=== PATIENT | female | born 1935 | race African-American/Black ===

== ENCOUNTER 2019-12-23 20:58 | Inpatient (IN) | payer MEDICARE, OTHER ==
[~2019-12-23] VITALS: Ht 167.6 cm; Wt 50.3 kg
[~2019-12-23 20:58] MED LIST: ACETAMINOPHEN-1 EAC1 ORAL; ACETAMINOPHEN80 MG ORAL; ASPIRIN-LOW81 MG ORAL; IBUPROFEN600 MG ORAL; ISOSORBIDE DINI20 M2 PO; NITROGLYCERIN2.5 MG PO; OMEPRAZOLE10 M1 ORAL; SIMVASTATIN5 MG ORAL
--- NOTE | 2019-12-23 21:07 | Emergency Room Report ---
History of Present Illness General Chief Complaint: Dyspnea/Respdistress Source: Patient, Medical Record, EMS Present Illness HPI Is an 84-year-old female with history of high blood pressure, diabetes, CAD with previous bypass surgery. She also has a history of COPD. She presents with chief plane of shortness of breath. She did complain of shortness of breath all day. No nausea no vomiting. Worsening tonight when she had to call 911. Worse with exertion. Worse with lying flat. No relief with her nebulizer machine. EMS that she was hypoxic and placed her on nonrebreather and brought her here. No treatment was given. Patient denies any chest pain. Has tightness because of respiratory status. No nausea no vomiting. No fever chills. No diaphoresis. No fever. I was able to get a better history from her daughter. Patient has a history of stage IV lung cancer. It was on remission initially but came back. She is currently undergoing chemotherapy and immunomodulators therapy. She was at [place] 2 weeks ago [address] scan which showed a right lower lobe mass and effusion with loculation. She also had a left upper lobe spiculated mass. Patient was given antibiotics and she signed out AMA. Allergies: Coded Allergies: NO KNOWN ALLERGIES (Verified Allergy, Unknown, 10/10/16) Patient History Past Medical History: see triage record, old chart reviewed, DM, HTN, CAD, COPD Past Surgical History: CABG, other Pertinent Family History: none Social History: Denies: smoking Last Menstrual Period: n/a Now: No Immunizations: other Reviewed Nursing Documentation: PMH: Agreed; PSxH: Agreed Nursing Documentation-PM Past Medical History: No History, Except For Hx Cardiac Problems: Yes - quadruple bypass surgery 1990 Hx Hypertension: Yes Hx COPD: Yes Hx Diabetes: No Hx Cancer: No Hx Gastrointestinal Problems: No Hx Neurological Problems: No Review of Systems Eye: Denies: eye pain, blurred vision ENT: Denies: ear pain, nose congestion, throat swelling Respiratory: Reports: cough, shortness of breath, wheezing Cardiovascular: Denies: chest pain, palpitations Gastrointestinal: Denies: abdominal pain, diarrhea, nausea, vomiting Musculoskeletal: Denies: back pain, joint pain Skin: Denies: rash Neurological: Denies: headache, numbness Endocrine: Denies: increased thirst, increased urine Hematologic/Lymphatic: Denies: easy bruising All Other Systems: negative except mentioned in HPI Physical Exam Vital Signs Date Time Temp Pulse Resp B/P (MAP) Pulse Ox O2 Delivery O2 Flow Rate FiO2 12/23/19 20:55 98.2 128 18 139/74 (95) 92 Non-Rebreather 15.0 Vitals with hypoxia Sp02 EP Interpretation: reviewed, abnormal General Appearance: alert, moderate distress, cachetic Head: normocephalic, atraumatic Eyes: bilateral eye PERRL, bilateral eye EOMI ENT: hearing grossly normal, normal pharynx Neck: full range of motion, supple, no meningismus Respiratory: chest non-tender, respiratory distress, decreased breath sounds, accessory muscle use, rales, rhonchi Cardiovascular #1: regular rate, rhythm, no murmur, tachycardia Gastrointestinal: normal bowel sounds, non tender, no mass, no organomegaly, no bruit, non-distended Musculoskeletal: back normal, normal range of motion Psychiatric: mood/affect normal Procedures Critical Care Time Critical Care Time Critical care is mandated in this patient who presented with acute respiratory failure secondary to pneumonia and CHF. Patient require my urgent intervention to attenuate the risks of respiratory and metabolic collapse which may lead to cardiovascular collapse and . Critical care time is 35 minutes excluding any reportable procedure. Critical care time included evaluation, multiple reevaluation, looking at old charts, interpreting laboratory and diagnostic data , discussing case with patient and family and consultants, and charting. Medical Decision Making Diagnostic Impression: Primary Impression: HCAP (healthcare-associated pneumonia) Additional Impressions: Respiratory failure with hypoxia Qualified Codes: J96.21 - Acute and chronic respiratory failure with hypoxia CHF exacerbation Qualified Codes: I50.9 - Heart failure, unspecified COPD with exacerbation RADHA (acute kidney injury) ER Course Patient with acute on chronic respiratory failure. She probably has obstructive pneumonia with a high white count. Antibiotics given. She also had fluid overload with vascular congestion on the chest x-ray. Also gave her Lasix. I held off on 30 cc/kg fluid bolus because of her CHF status. No evidence of ACS, PE, dissection to name a few. I discussed the case with Dr. Amos who will admit. EKG Diagnostic Results Rate: tachycardiac Rhythm: NSR ST Segments: other - NSST changes. Poor baseline due to tremors ASA given to the pt in ED: Yes Rhythm Strip Diag. Results EP Interpretation: yes Rate: 114 Rhythm: NSR, no PVC's, no ectopy Chest X-Ray Diagnostic Results Chest X-Ray Diagnostic Results : Chest X-Ray Ordered: Yes # of Views/Limited/Complete: 1 View Indication: Shortness of Breath EP Interpretation: Yes Interpretation: no pneumothorax, other - Large right lower lobe mass. Cannot rule out underlying infiltrate or edema. Vascular congestion. Impression: Other - RLL mass vs infiltrate. vasc congestion Electronically Signed by: Ge Carcamo MD Last Vital Signs Date Time Temp Pulse Resp B/P (MAP) Pulse Ox O2 Delivery O2 Flow Rate FiO2 12/23/19 20:55 98.2 128 18 139/74 (95) 92 Non-Rebreather 15.0 Status: improved Disposition: ADMITTED INPATIENT Condition: Serious Ge Carcamo MD Dec 23, 2019 21:07
[2019-12-23 21:10] VITALS: BP 114/68
[2019-12-23] MEDS ORDERED: Solu-MEDROL 125mg Inj IVP ONE (21:15)
[2019-12-23] MEDS ORDERED: Ipratropium 0.02% Inh Soln 2.5ml UD HHN ONE (21:15)
[2019-12-23] MEDS ORDERED: Aspirin Baby 81mg ORAL ONE (21:15)
[2019-12-23] MEDS ORDERED: Albuterol ud Inhalation HHN ONE (21:15)
[2019-12-23 21:21] LABS: HEMATOCRIT 44.4 % (37.0-47.0); HEMOGLOBIN 13.2 G/DL (12.0-16.0); MEAN CORPUSCULAR VOLUME 85 FL (80-99); PLATELET COUNT 307 K/UL (150-450); RED BLOOD COUNT 5.22 M/UL (4.20-5.40); RED CELL DISTRIBUTION WIDTH 17.8 % (11.6-14.8); WHITE BLOOD COUNT 19.8 K/UL (4.8-10.8)
[2019-12-23] MEDS ORDERED: IPRATROPIU0.2 MG/1 M HHN (21:28)
[2019-12-23] MEDS ORDERED: ARNUITY ELLIP100 MCG IH (21:28)
[2019-12-23] MEDS ORDERED: TESSALON PERLE100 M2 ORAL (21:28)
[2019-12-23] MEDS ORDERED: METOPROLOL SUCC50 MG ORAL (21:28)
[2019-12-23] MEDS ORDERED: METOPROLOL SUCC25 MG ORAL (21:28)
[2019-12-23 21:38] LABS: ANION GAP 12 mmol/L (5-15); BLOOD UREA NITROGEN 26 mg/dL (7-18); CALCIUM 9.9 MG/DL (8.5-10.1); CARBON DIOXIDE 22 MMOL/L (21-32); CHLORIDE 102 MMOL/L (98-107); CREATININE 1.6 MG/DL (0.55-1.30); POTASSIUM 4.7 MMOL/L (3.5-5.1); SODIUM 136 MMOL/L (136-145)
[2019-12-23 21:48] LABS: ALANINE AMINOTRANSFERASE 34 U/L (12-78); ALBUMIN 2.9 G/DL (3.4-5.0); ALBUMIN/GLOBULIN RATIO 0.5 (1.0-2.7); ALKALINE PHOSPHATASE 110 U/L (46-116); ASPARTATE AMINO TRANSFERASE 65 U/L (15-37); BILIRUBIN,TOTAL 0.4 MG/DL (0.2-1.0)
[2019-12-23] MEDS ORDERED: Piperacillin/Tazobactam 3.375 GM in NS 110 ML IVPB ONE (22:00)
[2019-12-23 22:20] LABS: APPEARANCE,URINE SLIGHTLY CLOUDY; BILIRUBIN, URINE NEGATIVE (NEGATIVE); GLUCOSE, URINE (UA) 1+ (NEGATIVE); KETONES,URINE 1+ (NEGATIVE); LEUKOCYTE ESTERASE ,URINE NEGATIVE (NEGATIVE); NITRITE,URINE NEGATIVE (NEGATIVE); PH,URINE 6 (4.5-8.0); PROTEIN,URINE 3+ (NEGATIVE); UROBILINOGEN,URINE NORMAL MG/DL (0.0-1.0)
[2019-12-23 22:21] LABS: COLOR,URINE YELLOW
[2019-12-23 22:50] VITALS: BP 93/56
[2019-12-24] VITALS (25 sets, daily range): BP systolic 74–136; BP diastolic 45–78
[2019-12-24] MEDS ORDERED: Milk of Magnesia 30ml Ud ORAL PRN (02:30)
[2019-12-24] MEDS ORDERED: HYDROcodone/Acetamin 10/325 tab ORAL PRN (02:30)
[2019-12-24] MEDS: Albuterol/Ipratropium 3ml neb HHN SCH ×6 (02:42→22:52)
[2019-12-24] MEDS ORDERED: Vancomycin 750mg/D5W 275ml IVPB SCH ×2 (03:00)
[2019-12-24] MEDS: Solu-MEDROL 125mg Inj IVP SCH ×3 (05:09→21:32)
[2019-12-24] MEDS: Aspirin EC 81mg tab ORAL SCH (09:00)
[2019-12-24] MEDS: Cefepime HCl 1 GM in D5W 55 ML IVPB SCH ×2 (09:06→21:33)
[2019-12-24] MEDS: Heparin 5000 units/ml inj SUBQ SCH ×3 (09:08→21:34)
--- NOTE | 2019-12-24 10:30 | Diagnostic Imaging Report ---
. Indication: Shortness of Technique: One view of the chest Comparison: 10/15/2016 Findings: Interim development of large right pleural effusion, smaller left pleural effusion. Interim development of dense consolidation of the right lower lobe. Hazy interstitial airspace and reticular interstitial disease is seen in the left mid and lower lung. The heart size is normal. Again demonstrated is evidence of prior median sternotomy and CABG Impression: Bilateral consolidation, likely pneumonia, pulmonary edema also possible Bilateral pleural effusions, right greater than left
[2019-12-25] VITALS (21 sets, daily range): BP systolic 107–154; BP diastolic 55–83
[2019-12-25] MEDS: Albuterol/Ipratropium 3ml neb HHN SCH ×4 (03:03→23:47)
[2019-12-25] MEDS: Solu-MEDROL 125mg Inj IVP SCH ×2 (05:09→21:31)
[2019-12-25] MEDS: Heparin 5000 units/ml inj SUBQ SCH ×3 (05:10→21:38)
[2019-12-25] MEDS: Cefepime HCl 1 GM in D5W 55 ML IVPB SCH ×2 (08:12→21:31)
[2019-12-25] MEDS: Aspirin EC 81mg tab ORAL SCH (08:13)
[2019-12-25 08:17] LABS: HEMOGLOBIN 11.7 G/DL (12.0-16.0); MEAN CORPUSCULAR VOLUME 80 FL (80-99); PLATELET COUNT 193 K/UL (150-450); RED BLOOD COUNT 4.48 M/UL (4.20-5.40); RED CELL DISTRIBUTION WIDTH 17.2 % (11.6-14.8); WHITE BLOOD COUNT 10.2 K/UL (4.8-10.8)
[2019-12-25 08:28] LABS: ALANINE AMINOTRANSFERASE 24 U/L (12-78); ALBUMIN 2.4 G/DL (3.4-5.0); ALBUMIN/GLOBULIN RATIO 0.5 (1.0-2.7); ALKALINE PHOSPHATASE 82 U/L (46-116); ANION GAP 10 mmol/L (5-15); ASPARTATE AMINO TRANSFERASE 44 U/L (15-37); BILIRUBIN,TOTAL 0.2 MG/DL (0.2-1.0); BLOOD UREA NITROGEN 42 mg/dL (7-18); CALCIUM 9.2 MG/DL (8.5-10.1); CARBON DIOXIDE 24 MMOL/L (21-32); CHLORIDE 111 MMOL/L (98-107); CREATININE 1.9 MG/DL (0.55-1.30); SODIUM 145 MMOL/L (136-145)
[2019-12-25] MEDS ORDERED: Vancomycin 1gm/D5W 275ml IVPB ONE ×2 (10:00)
[2019-12-25] MEDS ORDERED: Aspirin EC 81mg tab ORAL SCH (13:15)
--- NOTE | 2019-12-25 14:13 | Diagnostic Imaging Report ---
Indication: Dyspnea Comparison: 12/23/2019 A single view chest radiograph was obtained. Findings: Interstitial and alveolar opacities consistent with pulmonary edema demonstrated once again with slight interval worsening. Bilateral pleural effusions suspected. Heart is enlarged. Sternotomy again noted. IMPRESSION: Slightly worse CHF. Bilateral pleural effusions.
--- NOTE | 2019-12-25 15:00 | History and Physical Report ---
DATE OF ADMISSION: 12/23/2019 CHIEF COMPLAINT: Shortness of breath, respiratory failure. HISTORY OF PRESENT ILLNESS: The patient is an unfortunate 84-year-old female. She has a history of metastatic lung cancer, hypertension, ischemic cardiomyopathy, and diabetes. She has a history of COPD. She presented with complaints of worsening shortness of breath. The patient previously was seen at an outside hospital well over a week ago for similar symptoms. She was discharged from the ER after improving with breathing treatments. She is currently on BiPAP. She is somewhat somnolent and sleepy. According to the patient's daughter, she has been receiving her chemotherapy. She denies any fever or chills. She has had a mild nonproductive cough. She was previously given antibiotics and seen at the outside hospital. On evaluation in the emergency room, repeat chest x-ray showed a large right lower lobe mass and vascular congestion. She was given a dose of Lasix for possible CHF, placed on BiPAP, and is now admitted to the ICU. PAST MEDICAL HISTORY: As above. PAST SURGICAL HISTORY: None. CURRENT MEDICATIONS: Reconciled and reviewed. ALLERGIES: None. FAMILY HISTORY: None. SOCIAL HISTORY: Negative for tobacco, ethanol, or drugs. REVIEW OF SYSTEMS: Unobtainable as the patient is confused. PHYSICAL EXAMINATION: VITAL SIGNS: Temperature 98.5, pulse 115, respirations 24, blood pressure 127/69. GENERAL: The patient is a thin female. She appears chronically ill. HEENT: Her pupils are equal, round, and reactive to light. Oropharynx clear. NECK: Supple. HEART: Regular rate and rhythm. LUNGS: Clear. ABDOMEN: Soft, nontender, nondistended. EXTREMITIES: Without clubbing, cyanosis, or edema. LABORATORY DATA: White count of 20,000, hemoglobin 13, hematocrit 44, platelets of 307. Sodium 136, BUN 26, creatinine 1.6. Troponin was 0.048. Natriuretic peptide level 1600. ASSESSMENT: This is an unfortunate female with history of metastatic lung cancer, COPD, congestive heart failure, hypertension admitted with respiratory failure, likely multifactorial. PROBLEM LIST: 1. Respiratory failure. 2. CHF exacerbation. 3. Possible pneumonia. 4. Lung cancer. 5. Hypertension. 6. Ischemic cardiomyopathy. PLAN: 1. Continue BiPAP. We will wean as able. 2. IV antibiotics. 3. Respiratory treatments. 4. Cardiology and Pulmonary consultations will be obtained. 5. The patient's overall prognosis is poor. Elder Freeman M.D. DR: LORETTA JOB#: [id number] CC:
[2019-12-25] MEDS ORDERED: NovoLOG Insulin Flexpen SUBQ SCH ×2 (16:30→16:50)
[2019-12-25] MEDS ORDERED: Nitroglycerin 2% oint pkt TOPIC SCH (18:00)
--- NOTE | 2019-12-25 18:00 | Consultation ---
DATE OF CONSULTATION: 12/23/2019 CARDIOLOGY CONSULTATION CONSULTING PHYSICIAN: Samuel Amos M.D. REFERRING PHYSICIAN: Elder Freeman M.D. REASON: Respiratory failure. HISTORY: This is an 84-year-old female with lung cancer that was diagnosed over 3 years ago. She has had good response to adjuvant chemotherapy over the past 3 years with containment of her disease. More recently however she was started on immunotherapy about 2 months ago and has started faring worse with shortness of breath. Over the past 2 weeks, this has progressed. She was seen in the emergency room about a week ago and declined admission, but worsened prompting her return today. She has had cough, congestion, orthopnea, and PND with wheezing and poor appetite. She has not had any chest pain. PAST MEDICAL HISTORY: COPD, lung cancer, coronary artery disease status post CABG, hypertension, peripheral artery disease, hyperlipidemia, type 2 diabetes mellitus diet controlled, osteoarthritis, degenerative disk disease. ALLERGIES: None known. MEDICATIONS: Prior to admission, reviewed and reconciled. FAMILY HISTORY: Noncontributory. SOCIAL HISTORY: Greater than [id number] smoker, quit about 4 years ago. No alcohol or substance abuse. Lives at home with assistance of her daughter. REVIEW OF SYSTEMS: She is on anti-lipid therapy. Diabetes managed with diet. No history of thyroid impairment. No history of seizure or stroke. She does have peripheral artery disease and has had claudication in the past when she was more physically active. She has no history of melena, bright red blood per rectum, or change in bowel habits. She does have mild chronic kidney disease. There is no history of seizure. She has been on steroids in the past for COPD exacerbation. She has stage IV lung cancer as described above. Her most recent echocardiogram revealed ejection fraction in the range of 40 to 45% with mild valvular regurgitation. She has class 2 angina. She has been stable for at least 10 years on a medical regimen and has not had any heart failure exacerbation. There is no history of sustained cardiac arrhythmias. PHYSICAL EXAMINATION: VITAL SIGNS: Blood pressure 139/74, heart rate 128, respirations 18, afebrile. HEENT: Temporal wasting. Pale conjunctivae. Arcus senilis. Oropharynx clear. NECK: Supple. Jugular venous pressure is slightly elevated with some accessory muscle use. LUNGS: Diminished breath sounds. Rhonchi, rales, and occasional wheezing. Median sternotomy scar. BREASTS: Without masses. CARDIAC: Regular rhythm and rate. Normal S1, S2 with a fourth heart sound. ABDOMEN: Soft, nontender. EXTREMITIES: Palpable distal pulses. No edema. No ischemic changes. NEUROLOGIC: Nonfocal. DIAGNOSTIC AND LABORATORY DATA: EKG with sinus tachycardia, nonspecific ST-T wave changes. White count 19.8, hemoglobin 13.2. Sodium 136, potassium 4.7, bicarb 22, BUN 26, creatinine 1.6, glucose 290. Pro natriuretic peptide 15,500 and albumin 2.9. Urinalysis with 0 white cells. Chest x-ray is reviewed. Chest x-ray reveals bilateral consolidation and pulmonary edema. IMPRESSION: 1. Community-acquired pneumonia. 2. Stage IV lung cancer. 3. COPD with exacerbation. 4. Acute diastolic congestive heart failure. 5. Ischemic cardiomyopathy. 6. Moderate protein-calorie malnutrition. 7. Hyperglycemia. 8. Type 2 diabetes mellitus. 9. Acute hypoxic respiratory failure. PLAN: 1. ICU monitoring. 2. BiPAP support. 3. Diuresis as tolerated. 4. Broad-spectrum antimicrobials. 5. Intravenous steroids. 6. DVT and stress ulcer prophylaxis. 7. Protein supplement. 8. Insulin coverage by sliding scale. Samuel Amos M.D. DR: KAM JOB#: [id number] CC:
[2019-12-25] MEDS ORDERED: HYDROcodone/Acetamin 10/325 tab ORAL PRN (19:05)
[2019-12-25] MEDS ORDERED: Milk of Magnesia 30ml Ud ORAL PRN (19:05)
[2019-12-25] MEDS ORDERED: Solu-MEDROL 125mg Inj IVP SCH (21:00)
[2019-12-25] MEDS: NovoLOG Insulin Flexpen SUBQ SCH (21:36)
--- NOTE | 2019-12-25 22:00 | Progress Note ---
DATE: 12/24/2019 CARDIOLOGY PROGRESS NOTE SUBJECTIVE: The patient remains in the intensive care unit. She is very sleepy. She was up all night. She has episodes of respiratory distress. She remains on BiPAP support. Case was discussed with her daughter at bedside. Advanced directives Full Code at this time. OBJECTIVE: VITAL SIGNS: Blood pressure 93/56, pulse 102, respirations 31, and afebrile. LUNGS: Diminished breath sounds. Rhonchi. Expiratory wheezes. HEART: Regular rhythm and rate. Normal S1, S2 with a fourth heart sound. ABDOMEN: Soft. EXTREMITIES: Trace edema. LABORATORY DATA: No new laboratories from admission. IMPRESSION: 1. Acute respiratory failure. 2. Hypoxia. 3. Lung cancer. 4. Chronic obstructive pulmonary disease exacerbation. 5. Acute on diastolic congestive heart failure. 6. Ischemic cardiomyopathy. 7. Moderate protein-calorie malnutrition. 8. Acute on chronic kidney injury. 9. Type 2 diabetes mellitus. 10. Possible inflammatory response to immunotherapy. 11. Possible community-acquired pneumonia. PLAN: 1. Intravenous steroids. 2. Empiric antimicrobials. 3. Bronchodilators. 4. Respiratory hygiene. 5. Diuresis. 6. DVT and stress ulcer prophylaxis. 7. Hold antihypertensives. 8. Resume anti-platelet therapy. 9. Follow up chest radiograph. Samuel Amos M.D. DR: SANAM JOB#: [id number] CC:
[2019-12-26] VITALS: BP 120/73
[2019-12-26] MEDS: Albuterol/Ipratropium 3ml neb HHN SCH ×6 (03:26→22:15)
[2019-12-26 04:00] VITALS: BP 136/66
--- NOTE | 2019-12-26 06:11 | Progress Note ---
DATE: 12/25/2019 CARDIOLOGY PROGRESS NOTE SUBJECTIVE: The patient is seen again with daughter at bedside. The patient is much more alert and interactive, but she remains critial and guarded in the ICU. Her appetite is slightly better. She is tolerating diet. Monitored rhythm, sinus tachycardia with non-sustained atrial and ventricular ectopy. PHYSICAL EXAMINATION: NECK: Jugular venous pressure elevated. LUNGS: Bilateral rales. CARDIAC: Regular rhythm and rate. Normal S1 and S2. ABDOMEN: Soft. EXTREMITIES: No edema. LABORATORY AND DIAGNOSTIC DATA: White count 10 and hemoglobin 11.7. Potassium 4, sodium 145, bicarbonate 24, BUN 42, creatinine 1.9, and glucose 228. Albumin 2.4. Chest x-ray reveals pulmonary venous congestion. IMPRESSION: 1. COPD exacerbation. 2. Community-acquired pneumonia. 3. Stage IV lung cancer. 4. Acute on chronic diastolic congestive heart failure. 5. Ischemic cardiomyopathy. 6. Acute on chronic renal failure. 7. Severe protein-calorie malnutrition. 8. Secondary sinus tachycardia. 9. Atrial and ventricular ectopy. PLAN: 1. Diuresis. 2. Antimicrobials. 3. Steroids with taper. 4. Bronchodilators. 5. Antianginal therapy including topical nitrates. 6. DVT prophylaxis. Samuel Amos M.D. DR: CLEMENTINA JOB#: [id number] CC: SARKIS
[2019-12-26] MEDS: Nitroglycerin 2% oint pkt TOPIC SCH ×3 (06:17→16:08)
[2019-12-26] MEDS: Heparin 5000 units/ml inj SUBQ SCH ×3 (06:18→22:23)
[2019-12-26] MEDS: NovoLOG Insulin Flexpen SUBQ SCH ×4 (06:19→21:03)
[2019-12-26 06:37] LABS: HEMATOCRIT 35.4 % (37.0-47.0); HEMOGLOBIN 11.6 G/DL (12.0-16.0); MEAN CORPUSCULAR VOLUME 80 FL (80-99); PLATELET COUNT 192 K/UL (150-450); RED BLOOD COUNT 4.42 M/UL (4.20-5.40); RED CELL DISTRIBUTION WIDTH 17.3 % (11.6-14.8)
[2019-12-26 07:12] LABS: ALANINE AMINOTRANSFERASE 20 U/L (12-78); ALBUMIN 2.4 G/DL (3.4-5.0); ALBUMIN/GLOBULIN RATIO 0.5 (1.0-2.7); ALKALINE PHOSPHATASE 75 U/L (46-116); ANION GAP 9 mmol/L (5-15); ASPARTATE AMINO TRANSFERASE 36 U/L (15-37); BILIRUBIN,TOTAL 0.2 MG/DL (0.2-1.0); BLOOD UREA NITROGEN 47 mg/dL (7-18); CALCIUM 9.3 MG/DL (8.5-10.1); CARBON DIOXIDE 28 MMOL/L (21-32); CHLORIDE 104 MMOL/L (98-107); CREATININE 1.9 MG/DL (0.55-1.30); POTASSIUM 4.3 MMOL/L (3.5-5.1); SODIUM 141 MMOL/L (136-145)
[2019-12-26 08:00] VITALS: BP 135/74
[2019-12-26] MEDS: Cefepime HCl 1 GM in D5W 55 ML IVPB SCH ×2 (09:00→21:01)
[2019-12-26] MEDS: Aspirin EC 81mg tab ORAL SCH (09:09)
[2019-12-26] MEDS: Solu-MEDROL 125mg Inj IVP SCH (09:12)
[2019-12-26 12:00] VITALS: BP 112/72
--- NOTE | 2019-12-26 13:42 | General Progress Note ---
Assessment/Plan Problem List: (1) Pneumonia ICD Codes: J18.9 - Pneumonia, unspecified organism SNOMED: 093070116 (2) CHF exacerbation ICD Codes: I50.9 - Heart failure, unspecified SNOMED: 804099868, 35230250008694 Qualifiers: Qualified Codes: I50.9 - Heart failure, unspecified (3) COPD with exacerbation ICD Codes: J44.1 - Chronic obstructive pulmonary disease with (acute) exacerbation SNOMED: 352175197, 9437009 (4) Respiratory failure with hypoxia ICD Codes: J96.91 - Respiratory failure, unspecified with hypoxia SNOMED: 05453659461515241 Qualifiers: Qualified Codes: J96.21 - Acute and chronic respiratory failure with hypoxia (5) RADHA (acute kidney injury) ICD Codes: N17.9 - Acute kidney failure, unspecified SNOMED: 25265806, 9907290 Status: stable, progressing Assessment/Plan: iv lasix bipap resp rx abx consider tap Subjective ROS Limited/Unobtainable: No Constitutional: Reports: malaise, weakness HEENT: Reports: no symptoms Cardiovascular: Reports: no symptoms Respiratory: Reports: cough, shortness of breath Gastrointestinal/Abdominal: Reports: no symptoms Genitourinary: Reports: no symptoms Neurologic/Psychiatric: Reports: no symptoms Endocrine: Reports: no symptoms Hematologic/Lymphatic: Reports: no symptoms Allergies: Coded Allergies: NO KNOWN ALLERGIES (Verified Allergy, Unknown, 10/10/16) All Systems: reviewed and negative except above Subjective no complaints. currently off bipap. decreased sob. weak but alert. follow commands. Objective Last 24 Hour Vital Signs Date Time Temp Pulse Resp B/P (MAP) Pulse Ox O2 Delivery O2 Flow Rate FiO2 12/26/19 12:11 Bi-pap 12/26/19 12:00 108/63 12/26/19 11:56 89 12/26/19 09:00 77 108/63 12/26/19 08:00 86 12/26/19 08:00 Bi-pap 12/26/19 07:27 84 20 100 Nasal Cannula 2.0 28 81 20 99 12/26/19 07:07 98 Nasal Cannula 2.0 28 12/26/19 06:17 136/66 12/26/19 04:00 35 12/26/19 04:00 86 12/26/19 04:00 Bi-pap 12/26/19 04:00 97.7 95 23 136/66 (89) 95 12/26/19 02:35 92 19 96 35 12/26/19 00:56 94 21 95 Bi-Pap 35 35 12/26/19 00:00 90 12/26/19 00:00 97.7 92 20 120/73 (89) 98 12/26/19 00:00 Nasal Cannula 2.0 12/26/19 00:00 2.0 12/25/19 23:47 81 18 91 Nasal Cannula 2.0 28 78 18 89 12/25/19 21:30 95 119/70 12/25/19 20:00 2.0 12/25/19 20:00 Nasal Cannula 2.0 12/25/19 20:00 95 12/25/19 20:00 98.7 97 20 119/70 (86) 100 12/25/19 19:31 89 Nasal Cannula 2.0 28 12/25/19 19:00 97 20 123/81 (95) 92 12/25/19 18:00 97 20 123/81 (95) 92 12/25/19 17:16 123/89 12/25/19 17:00 90 13 123/69 (87) 96 12/25/19 16:00 2.0 12/25/19 16:00 97 12/25/19 16:00 Nasal Cannula 2.0 12/25/19 16:00 98.2 100 21 118/70 (86) 93 12/25/19 15:00 103 20 108/60 (76) 95 12/25/19 14:04 108 107/57 12/25/19 14:00 109 29 107/55 (72) 95 Intake and Output 12/25/19 12/26/19 19:00 07:00 Intake Total 510.000 ml 295 ml Output Total 970 ml 1500 ml Balance -460.000 ml -1205 ml Intake Oral 180 ml 240 ml IV Total 330.000 ml 55 ml Output Urine Total 970 ml 1500 ml Laboratory Tests 12/26/19 03:50: White Blood Count 7.0, Red Blood Count 4.42, Hemoglobin 11.6L, Hematocrit 35.4L , Mean Corpuscular Volume 80, Mean Corpuscular Hemoglobin 26.2L, Mean Corpuscular Hemoglobin Concent 32.6, Red Cell Distribution Width 17.3H, Platelet Count 192, Mean Platelet Volume 7.3, Neutrophils (%) (Auto) , Lymphocytes (%) (Auto) , Monocytes (%) (Auto) , Eosinophils (%) (Auto) , Basophils (%) (Auto) , Differential Total Cells Counted 100, Neutrophils % ( Manual) 96H, Lymphocytes % (Manual) 2L, Monocytes % (Manual) 1, Eosinophils % ( Manual) 0, Basophils % (Manual) 1, Band Neutrophils 0, Platelet Estimate Adequate, Platelet Morphology Normal, Hypochromasia 1+, Anisocytosis 1+, Sodium Level 141, Potassium Level 4.3, Chloride Level 104, Carbon Dioxide Level 28, Anion Gap 9, Blood Urea Nitrogen 47H, Creatinine 1.9H, Estimat Glomerular Filtration Rate 30.5, Glucose Level 205H, Calcium Level 9.3, Magnesium Level 2.5H, Total Bilirubin 0.2, Aspartate Amino Transf (AST/SGOT) 36, Alanine Aminotransferase (ALT/SGPT) 20, Alkaline Phosphatase 75, Pro-B-Type Natriuretic Peptide 77436G, Total Protein 7.0, Albumin 2.4L, Globulin 4.6, Albumin/Globulin Ratio 0.5L Height (Feet): 5 Height (Inches): 6.00 Weight (Pounds): 104 General Appearance: WD/WN, alert Cardiovascular: regular rhythm Respiratory/Chest: decreased breath sounds Abdomen: normal bowel sounds, non tender, soft, no organomegaly Edema: no edema noted Arm (L), no edema noted Arm (R), no edema noted Leg (L), no edema noted Leg (R), no edema noted Pedal (L), no edema noted Pedal (R), no edema noted Generalized Neurologic: alert Elder Freeman MD Dec 26, 2019 13:42
[2019-12-26] MEDS ORDERED: NS 275ml ONE (15:27)
[2019-12-26 16:00] VITALS: BP 106/63
[2019-12-26 20:00] VITALS: BP 112/64
[2019-12-26] MEDS: Solu-MEDROL 40mg Inj IVP SCH (21:01)
--- NOTE | 2019-12-26 22:30 | Progress Note ---
DATE: 12/26/2019 CARDIOLOGY PROGRESS NOTE SUBJECTIVE: The patient responded fairly well to diuresis yesterday. She is somewhat less short of breath. Still with congestion. Appetite is poor. She notes that she may be better with pureed diet that she does not have to chew. OBJECTIVE: VITAL SIGNS: Blood pressure 108/63, pulse 77, and respiratory rate 18. She is intermittently on BiPAP support. LUNGS: Bilateral breath sounds. CARDIAC: Regular rhythm and rate. Normal S1 and S2. Scattered rhonchi. No wheezing. ABDOMEN: Soft. EXTREMITIES: No edema. LABORATORY AND DIAGNOSTIC DATA: Sodium 141, potassium 4.3, bicarbonate 28, BUN 47, creatinine 1.9, and glucose 205. Pro-natriuretic peptide 18,000. Albumin 2.4. White count 7 and hemoglobin 11.6. Chest x-ray yesterday revealed pulmonary edema. IMPRESSION: 1. Acute on chronic systolic and diastolic congestive heart failure. 2. Ischemic cardiomyopathy. 3. Paroxysmal bronchospasm. 4. COPD with exacerbation. 5. Community-acquired pneumonia. 6. Stage IV lung cancer. 7. Possible immunotherapy reaction. 8. Acute on chronic kidney injury. 9. Type 2 diabetes mellitus. 10. Dysphagia due to dentures. PLAN: 1. Downgrade diet. 2. Continue diuresis. 3. Respiratory hygiene. 4. Bronchodilators. 5. Antimicrobials. 6. Taper steroids. Samuel Amos M.D. DR: CLEMENTINA JOB#: [id number] CC:
[2019-12-27] VITALS: BP 123/72
[2019-12-27] MEDS: Albuterol/Ipratropium 3ml neb HHN SCH ×6 (02:11→22:08)
[2019-12-27 04:00] VITALS: BP 118/69
[2019-12-27 05:18] LABS: ALANINE AMINOTRANSFERASE 20 U/L (12-78); ALBUMIN 2.3 G/DL (3.4-5.0); ALBUMIN/GLOBULIN RATIO 0.5 (1.0-2.7); ALKALINE PHOSPHATASE 65 U/L (46-116); ANION GAP 8 mmol/L (5-15); ASPARTATE AMINO TRANSFERASE 24 U/L (15-37); BILIRUBIN,TOTAL 0.2 MG/DL (0.2-1.0); BLOOD UREA NITROGEN 49 mg/dL (7-18); CARBON DIOXIDE 27 MMOL/L (21-32); CHLORIDE 102 MMOL/L (98-107); CREATININE 1.8 MG/DL (0.55-1.30); POTASSIUM 4.7 MMOL/L (3.5-5.1); SODIUM 137 MMOL/L (136-145)
[2019-12-27] MEDS: Nitroglycerin 2% oint pkt TOPIC SCH ×3 (06:04→17:49)
[2019-12-27] MEDS: NovoLOG Insulin Flexpen SUBQ SCH ×4 (06:06→20:48)
[2019-12-27] MEDS: Heparin 5000 units/ml inj SUBQ SCH ×3 (06:07→20:55)
--- NOTE | 2019-12-27 07:51 | General Progress Note ---
Assessment/Plan Problem List: (1) Pneumonia ICD Codes: J18.9 - Pneumonia, unspecified organism SNOMED: 121290361 (2) CHF exacerbation ICD Codes: I50.9 - Heart failure, unspecified SNOMED: 890466536, [id number] Qualifiers: Qualified Codes: I50.9 - Heart failure, unspecified (3) COPD with exacerbation ICD Codes: J44.1 - Chronic obstructive pulmonary disease with (acute) exacerbation SNOMED: 160035168, 0265839 (4) Respiratory failure with hypoxia ICD Codes: J96.91 - Respiratory failure, unspecified with hypoxia SNOMED: [id number] Qualifiers: Qualified Codes: J96.21 - Acute and chronic respiratory failure with hypoxia (5) RADHA (acute kidney injury) ICD Codes: N17.9 - Acute kidney failure, unspecified SNOMED: 87491014, 0526470 Status: stable, progressing Assessment/Plan: iv lasix bipap resp rx abx consider tap Subjective ROS Limited/Unobtainable: No Constitutional: Reports: malaise, weakness HEENT: Reports: no symptoms Cardiovascular: Reports: no symptoms Respiratory: Reports: cough, shortness of breath Gastrointestinal/Abdominal: Reports: no symptoms Genitourinary: Reports: no symptoms Neurologic/Psychiatric: Reports: no symptoms Endocrine: Reports: no symptoms Hematologic/Lymphatic: Reports: no symptoms Allergies: Coded Allergies: NO KNOWN ALLERGIES (Verified Allergy, Unknown, 10/10/16) All Systems: reviewed and negative except above Subjective off bipap. eating breakfast. less sob and congested. Objective Last 24 Hour Vital Signs Date Time Temp Pulse Resp B/P (MAP) Pulse Ox O2 Delivery O2 Flow Rate FiO2 12/27/19 07:22 85 20 99 83 20 99 12/27/19 07:21 99 Nasal Cannula 2.0 28 12/27/19 06:04 118/69 12/27/19 04:47 84 22 98 35 12/27/19 04:00 92 12/27/19 04:00 Bi-pap 12/27/19 04:00 97.8 90 28 118/69 (85) 97 12/27/19 04:00 35 12/27/19 02:12 91 23 97 35 12/27/19 02:12 93 22 99 Bi-Pap 35 91 23 97 12/27/19 00:48 95 21 97 35 12/27/19 00:00 35 12/27/19 00:00 Nasal Cannula 2.0 12/27/19 00:00 96 12/27/19 00:00 97.7 100 22 123/72 (89) 96 12/26/19 22:16 94 18 98 Nasal Cannula 2.0 28 92 18 95 12/26/19 21:02 96 112/64 12/26/19 21:00 Nasal Cannula 2.0 12/26/19 20:00 98.6 96 24 112/64 (80) 96 12/26/19 20:00 100 12/26/19 20:00 2.0 12/26/19 19:53 92 20 99 Nasal Cannula 2.0 28 95 20 96 12/26/19 19:53 96 Nasal Cannula 2.0 28 12/26/19 16:08 103/63 12/26/19 16:00 98.2 96 20 106/63 (77) 96 12/26/19 16:00 97 12/26/19 15:40 Bi-pap 12/26/19 14:21 86 18 100 Nasal Cannula 2.0 28 78 18 98 12/26/19 12:11 Bi-pap 12/26/19 12:00 97.3 64 20 112/72 (85) 98 12/26/19 12:00 108/63 12/26/19 11:56 89 12/26/19 09:00 77 108/63 12/26/19 08:00 86 12/26/19 08:00 97.0 86 19 135/74 (94) 97 12/26/19 08:00 Bi-pap Intake and Output 12/26/19 12/27/19 19:00 07:00 Intake Total 295 ml Output Total 900 ml Balance -605 ml Intake Oral 240 ml IV Total 55 ml Output Urine Total 900 ml Laboratory Tests 12/27/19 04:05: Sodium Level 137, Potassium Level 4.7, Chloride Level 102, Carbon Dioxide Level 27, Anion Gap 8, Blood Urea Nitrogen 49H, Creatinine 1.8H, Estimat Glomerular Filtration Rate 32.6, Glucose Level 232H, Calcium Level 9.0, Total Bilirubin 0.2 , Aspartate Amino Transf (AST/SGOT) 24, Alanine Aminotransferase (ALT/SGPT) 20, Alkaline Phosphatase 65, Total Protein 6.5, Albumin 2.3L, Globulin 4.2, Albumin/ Globulin Ratio 0.5L, Random Vancomycin Level 10.7 Height (Feet): 5 Height (Inches): 6.00 Weight (Pounds): 105 Objective General Appearance: WD/WN, alert Cardiovascular: regular rhythm Respiratory/Chest: decreased breath sounds Abdomen: normal bowel sounds, non tender, soft, no organomegaly Edema: no edema noted Arm (L), no edema noted Arm (R), no edema noted Leg (L), no edema noted Leg (R), no edema noted Pedal (L), no edema noted Pedal (R), no edema noted Generalized Neurologic: alert Elder Freeman MD Dec 27, 2019 07:51
[2019-12-27 08:00] VITALS: BP 110/67
[2019-12-27] MEDS ORDERED: Vancomycin 1 GM in NS 275 ML IVPB ONE (08:00)
[2019-12-27] MEDS: Solu-MEDROL 40mg Inj IVP SCH ×2 (08:20→20:27)
[2019-12-27] MEDS: Aspirin EC 81mg tab ORAL SCH (08:20)
[2019-12-27] MEDS: Cefepime HCl 1 GM in D5W 55 ML IVPB SCH ×2 (09:10→20:28)
[2019-12-27] MEDS ORDERED: NS 275ml ONE (10:29)
[2019-12-27] MEDS ORDERED: Tubing IV Secondary IV ONE (10:29)
--- NOTE | 2019-12-27 10:38 | Pulmonology Progress Note ---
Assessment/Plan Assessment/Plan 1. Acute on chronic systolic and diastolic congestive heart failure. 2. Ischemic cardiomyopathy. 3. Pulmonary edema 4. COPD with exacerbation. 5. Possible pneumonia. 6. Stage IV lung cancer. 7. Type 2 diabetes mellitus. 8. aspiration risk PLAN diurese on steroids monitor imaging; not yet improved ?? lymphangitic spread oxygen as needed BIPAP PRN monitor acid base impression, plan, and exam edited and reviewed in detail care discussed with RN Subjective Allergies: Coded Allergies: NO KNOWN ALLERGIES (Verified Allergy, Unknown, 10/10/16) Subjective care noted off BIPAP no distress Objective Last 24 Hour Vital Signs Date Time Temp Pulse Resp B/P (MAP) Pulse Ox O2 Delivery O2 Flow Rate FiO2 12/27/19 08:20 97 110/67 12/27/19 08:00 98.1 97 19 110/67 (81) 100 12/27/19 08:00 Nasal Cannula 2.0 12/27/19 08:00 2.0 12/27/19 07:44 96 12/27/19 07:22 85 20 99 83 20 99 12/27/19 07:21 99 Nasal Cannula 2.0 28 12/27/19 06:04 118/69 12/27/19 04:47 84 22 98 35 12/27/19 04:00 92 12/27/19 04:00 Bi-pap 12/27/19 04:00 97.8 90 28 118/69 (85) 97 12/27/19 04:00 35 12/27/19 02:12 91 23 97 35 12/27/19 02:12 93 22 99 Bi-Pap 35 91 23 97 12/27/19 00:48 95 21 97 35 12/27/19 00:00 35 12/27/19 00:00 Nasal Cannula 2.0 12/27/19 00:00 96 12/27/19 00:00 97.7 100 22 123/72 (89) 96 12/26/19 22:16 94 18 98 Nasal Cannula 2.0 28 92 18 95 12/26/19 21:02 96 112/64 12/26/19 21:00 Nasal Cannula 2.0 12/26/19 20:00 98.6 96 24 112/64 (80) 96 12/26/19 20:00 100 12/26/19 20:00 2.0 12/26/19 19:53 92 20 99 Nasal Cannula 2.0 28 95 20 96 12/26/19 19:53 96 Nasal Cannula 2.0 28 12/26/19 16:08 103/63 12/26/19 16:00 98.2 96 20 106/63 (77) 96 12/26/19 16:00 97 12/26/19 15:40 Bi-pap 12/26/19 14:21 86 18 100 Nasal Cannula 2.0 28 78 18 98 12/26/19 12:11 Bi-pap 12/26/19 12:00 97.3 64 20 112/72 (85) 98 12/26/19 12:00 108/63 12/26/19 11:56 89 Intake and Output 12/26/19 12/27/19 19:00 07:00 Intake Total 295 ml Output Total 900 ml Balance -605 ml Intake Oral 240 ml IV Total 55 ml Output Urine Total 900 ml Objective WDWN NAD reduced breath sounds bilaterally with some crackles [id number] without MRG NABS nontender no HSM no CC mild edema reduced LOC Laboratory Tests 12/27/19 04:05: Sodium Level 137, Potassium Level 4.7, Chloride Level 102, Carbon Dioxide Level 27, Anion Gap 8, Blood Urea Nitrogen 49H, Creatinine 1.8H, Estimat Glomerular Filtration Rate 32.6, Glucose Level 232H, Calcium Level 9.0, Total Bilirubin 0.2 , Aspartate Amino Transf (AST/SGOT) 24, Alanine Aminotransferase (ALT/SGPT) 20, Alkaline Phosphatase 65, Total Protein 6.5, Albumin 2.3L, Globulin 4.2, Albumin/ Globulin Ratio 0.5L, Random Vancomycin Level 10.7 Current Medications Medications (Trade) Dose Ordered Sig/Carlos Route PRN Reason Start Time Stop Time Status Last Admin Dose Admin Acetaminophen (Tylenol) 650 mg Q4H PRN ORAL Mild Pain/Temp > 100.5 12/25/19 19:04 01/24/20 19:03 Acetaminophen/ Hydrocodone Bitart ([place] 10/325) 1 tab Q4H PRN ORAL For Pain 12/25/19 19:05 01/01/20 19:04 Albuterol/ Ipratropium (Albuterol/ Ipratropium) 3 ml Q4HRT HHN 12/25/19 23:00 12/29/19 02:59 12/27/19 07:20 Aspirin (Ecotrin) 81 mg DAILY ORAL 12/26/19 09:00 01/24/20 13:14 12/27/19 08:20 Cefepime HCl 1 gm/ Dextrose 55 ml @ 110 mls/hr EVERY 12 HOURS IVPB 12/25/19 21:00 12/31/19 08:59 12/27/19 09:10 Dextrose (Dextrose 50%) 25 ml Q30M PRN IV Hypoglycemia 12/25/19 19:15 01/24/20 13:14 Dextrose (Dextrose 50%) 50 ml Q30M PRN IV Hypoglycemia 12/25/19 19:15 01/24/20 13:14 Heparin Sodium (Porcine) (Heparin 5000 units/ml) 5,000 units EVERY 8 HOURS SUBQ 12/25/19 22:00 01/23/20 07:59 12/27/19 06:07 Insulin Aspart (NovoLOG) BEFORE MEALS AND HS SUBQ 12/25/19 21:00 01/24/20 16:29 12/27/19 06:06 Magnesium Hydroxide (Mom) 30 ml DAILYPRN PRN ORAL Constipation 12/25/19 19:05 01/24/20 19:04 Methylprednisolone Sodium Succinate (Solu-MEDROL) 40 mg EVERY 12 HOURS IVP 12/26/19 21:00 01/25/20 20:59 12/27/19 08:20 Metoprolol Tartrate (Lopressor) 25 mg Q12HR ORAL 12/25/19 21:00 01/24/20 13:14 12/27/19 08:20 Nitroglycerin (Nitro-Bid) 1 inch TID@0600,1200,1800 TOPIC 12/26/19 06:00 01/24/20 17:59 12/27/19 06:04 Pantoprazole (Protonix) 40 mg DAILY ORAL 12/26/19 09:00 01/23/20 08:59 12/27/19 08:20 Pravastatin Sodium (Pravachol) 20 mg BEDTIME ORAL 12/25/19 21:00 01/24/20 20:59 12/26/19 21:01 Vancomycin HCl (Vanco rx to dose) 1 ea DAILY PRN MISC Per rx protocol 12/26/19 09:00 01/23/20 02:14 Rei Seymour MD Dec 27, 2019 10:38
[2019-12-27 12:00] VITALS: BP 103/64
[2019-12-27 16:00] VITALS: BP 105/65
[2019-12-27 20:00] VITALS: BP 103/64
[2019-12-28] VITALS: BP 101/64
--- NOTE | 2019-12-28 01:01 | Progress Note ---
DATE: 12/27/2019 CARDIOLOGY PROGRESS NOTE SUBJECTIVE: Weak and withdrawn, but less short of breath. OBJECTIVE: VITAL SIGNS: Blood pressure 103/64, pulse 103, respiratory rate 22, and afebrile. Cardiac monitoring reviewed by me sinus and sinus tachycardia noted. LUNGS: Coarse breath sounds and rhonchi with a few rales. HEART: Regular rhythm and rate. Normal S1 and S2. A 1/6 systolic murmur at apex. ABDOMEN: Soft and nontender. EXTREMITIES: Trace dependent edema. LABORATORY DATA: Sodium 137, potassium 4.7, bicarb 27, BUN 49, creatinine 1.8, and glucose 232. Albumin 2.3. IMPRESSION: 1. Community-acquired pneumonia and lung cancer. 2. COPD exacerbation. 3. Acute on chronic diastolic and systolic congestive heart failure 4. Ischemic cardiomyopathy. 5. Type 2 diabetes mellitus with hyperglycemia due to steroids. 6. Secondary sinus tachycardia. PLAN: 1. Continue diuresis. 2. Taper steroids. 3. Antimicrobials. 4. Respiratory hygiene. 5. Bronchodilators. 6. DVT prophylaxis. 7. Insulin coverage by sliding scale. 8. Nasal oxygen. 9. BiPAP p.r.n. 10. Replace electrolytes. Samuel Amos M.D. DR: [place] JOB#: [id number] CC:
[2019-12-28] MEDS: Albuterol/Ipratropium 3ml neb HHN SCH ×6 (02:08→23:28)
[2019-12-28 04:00] VITALS: BP 129/67
[2019-12-28 05:20] LABS: HEMATOCRIT 34.7 % (37.0-47.0); HEMOGLOBIN 11.3 G/DL (12.0-16.0); MEAN CORPUSCULAR VOLUME 80 FL (80-99); PLATELET COUNT 153 K/UL (150-450); RED BLOOD COUNT 4.34 M/UL (4.20-5.40); RED CELL DISTRIBUTION WIDTH 16.5 % (11.6-14.8); WHITE BLOOD COUNT 5.2 K/UL (4.8-10.8)
[2019-12-28] MEDS: Heparin 5000 units/ml inj SUBQ SCH ×3 (05:46→21:46)
[2019-12-28 05:50] LABS: ALANINE AMINOTRANSFERASE 21 U/L (12-78); ALBUMIN 2.3 G/DL (3.4-5.0); ALBUMIN/GLOBULIN RATIO 0.5 (1.0-2.7); ALKALINE PHOSPHATASE 66 U/L (46-116); ANION GAP 7 mmol/L (5-15); ASPARTATE AMINO TRANSFERASE 23 U/L (15-37); BILIRUBIN,TOTAL 0.3 MG/DL (0.2-1.0); BLOOD UREA NITROGEN 37 mg/dL (7-18); CALCIUM 9.1 MG/DL (8.5-10.1); CARBON DIOXIDE 27 MMOL/L (21-32); CHLORIDE 103 MMOL/L (98-107); CREATININE 1.5 MG/DL (0.55-1.30); POTASSIUM 5.2 MMOL/L (3.5-5.1); SODIUM 137 MMOL/L (136-145)
[2019-12-28] MEDS: NovoLOG Insulin Flexpen SUBQ SCH ×4 (05:57→20:39)
[2019-12-28] MEDS: Nitroglycerin 2% oint pkt TOPIC SCH ×3 (06:02→17:12)
[2019-12-28 08:00] VITALS: BP 108/87
--- NOTE | 2019-12-28 08:16 | Pulmonology Progress Note ---
Assessment/Plan Assessment/Plan 1. Acute on chronic systolic and diastolic congestive heart failure. 2. Ischemic cardiomyopathy. 3. Pulmonary edema 4. COPD with exacerbation. 5. Possible pneumonia. 6. Stage IV lung cancer. 7. Type 2 diabetes mellitus. 8. aspiration risk PLAN diurese on steroids; taper monitor imaging; not yet improved ?? lymphangitic spread; CT chest if CXR not improved oxygen as needed encourage cough BIPAP PRN monitor acid base impression, plan, and exam edited and reviewed in detail care discussed with RN Subjective ROS Limited/Unobtainable: Yes Allergies: Coded Allergies: NO KNOWN ALLERGIES (Verified Allergy, Unknown, 10/10/16) Subjective care noted off BIPAP at present on oxygen no distress Objective Last 24 Hour Vital Signs Date Time Temp Pulse Resp B/P (MAP) Pulse Ox O2 Delivery O2 Flow Rate FiO2 12/28/19 08:00 Nasal Cannula 2.0 12/28/19 08:00 2.0 12/28/19 08:00 97.8 98 20 108/87 (94) 96 12/28/19 07:22 90 20 99 Nasal Cannula 2.0 28 85 20 97 12/28/19 07:21 97 Nasal Cannula 2.0 28 12/28/19 06:02 129/67 12/28/19 05:04 92 22 99 35 12/28/19 04:00 2.0 12/28/19 04:00 Nasal Cannula 2.0 12/28/19 04:00 97.9 96 21 129/67 (87) 100 12/28/19 04:00 93 12/28/19 02:09 96 24 99 35 12/28/19 02:08 93 23 100 Bi-Pap 35 94 24 99 12/28/19 00:19 99 24 97 35 12/28/19 00:00 98.2 106 27 101/64 (76) 97 12/28/19 00:00 2.0 12/28/19 00:00 Nasal Cannula 2.0 12/27/19 23:35 114 12/27/19 22:09 96 18 99 Nasal Cannula 2.0 28 98 20 97 12/27/19 20:29 91 105/65 12/27/19 20:00 98.6 103 22 103/64 (77) 97 12/27/19 20:00 Nasal Cannula 2.0 12/27/19 20:00 2.0 12/27/19 19:38 108 12/27/19 19:09 96 Nasal Cannula 2.0 28 12/27/19 19:09 91 21 99 Nasal Cannula 2.0 28 95 23 96 12/27/19 17:49 105/65 12/27/19 16:00 2.0 12/27/19 16:00 Nasal Cannula 2.0 12/27/19 16:00 98.2 97 21 105/65 (78) 96 12/27/19 15:23 104 12/27/19 14:44 92 18 100 94 18 97 12/27/19 12:00 98.5 68 21 103/64 (77) 92 12/27/19 12:00 2.0 12/27/19 12:00 Nasal Cannula 2.0 12/27/19 12:00 103/64 12/27/19 11:46 99 12/27/19 11:15 93 20 99 90 20 98 12/27/19 08:20 97 110/67 Intake and Output 12/27/19 12/28/19 19:00 07:00 Intake Total 830.000 ml 55 ml Output Total 800 ml 1000 ml Balance 30.000 ml -945 ml Intake Oral 500 ml IV Total 330.000 ml 55 ml Output Urine Total 800 ml 1000 ml # Bowel Movements 1 Objective WDWN NAD reduced breath sounds bilaterally with some crackles [id number] without MRG NABS nontender no HSM no CC mild edema reduced LOC reviewed and edited Laboratory Tests 12/28/19 04:00: White Blood Count 5.2, Red Blood Count 4.34, Hemoglobin 11.3L, Hematocrit 34.7L , Mean Corpuscular Volume 80, Mean Corpuscular Hemoglobin 26.0L, Mean Corpuscular Hemoglobin Concent 32.4, Red Cell Distribution Width 16.5H, Platelet Count 153, Mean Platelet Volume 7.8, Neutrophils (%) (Auto) , Lymphocytes (%) (Auto) , Monocytes (%) (Auto) , Eosinophils (%) (Auto) , Basophils (%) (Auto) , Neutrophils % (Manual) [Pending], Lymphocytes % (Manual) [Pending], Platelet Estimate [Pending], Platelet Morphology [Pending], Sodium Level 137, Potassium Level 5.2H, Chloride Level 103, Carbon Dioxide Level 27, Anion Gap 7, Blood Urea Nitrogen 37H, Creatinine 1.5H, Estimat Glomerular Filtration Rate 40.2, Glucose Level 277H, Calcium Level 9.1, Magnesium Level 2.4 , Total Bilirubin 0.3, Aspartate Amino Transf (AST/SGOT) 23, Alanine Aminotransferase (ALT/SGPT) 21, Alkaline Phosphatase 66, Pro-B-Type Natriuretic Peptide 5258H, Total Protein 6.6, Albumin 2.3L, Globulin 4.3, Albumin/Globulin Ratio 0.5L Current Medications Medications (Trade) Dose Ordered Sig/Carlos Route PRN Reason Start Time Stop Time Status Last Admin Dose Admin Acetaminophen (Tylenol) 650 mg Q4H PRN ORAL Mild Pain/Temp > 100.5 12/25/19 19:04 01/24/20 19:03 Acetaminophen/ Hydrocodone Bitart ([place] 10/325) 1 tab Q4H PRN ORAL For Pain 12/25/19 19:05 01/01/20 19:04 Albuterol/ Ipratropium (Albuterol/ Ipratropium) 3 ml Q4HRT HHN 12/25/19 23:00 12/29/19 02:59 12/28/19 07:25 Aspirin (Ecotrin) 81 mg DAILY ORAL 12/26/19 09:00 01/24/20 13:14 12/27/19 08:20 Cefepime HCl 1 gm/ Dextrose 55 ml @ 110 mls/hr EVERY 12 HOURS IVPB 12/25/19 21:00 12/31/19 08:59 12/27/19 20:28 Dextrose (Dextrose 50%) 25 ml Q30M PRN IV Hypoglycemia 12/25/19 19:15 01/24/20 13:14 Dextrose (Dextrose 50%) 50 ml Q30M PRN IV Hypoglycemia 12/25/19 19:15 01/24/20 13:14 Heparin Sodium (Porcine) (Heparin 5000 units/ml) 5,000 units EVERY 8 HOURS SUBQ 12/25/19 22:00 01/23/20 07:59 12/28/19 05:46 Insulin Aspart (NovoLOG) BEFORE MEALS AND HS SUBQ 12/25/19 21:00 01/24/20 16:29 12/28/19 05:57 Magnesium Hydroxide (Mom) 30 ml DAILYPRN PRN ORAL Constipation 12/25/19 19:05 01/24/20 19:04 12/27/19 17:49 Methylprednisolone Sodium Succinate (Solu-MEDROL) 40 mg DAILY IVP 12/28/19 09:00 01/27/20 08:59 Metoprolol Tartrate (Lopressor) 25 mg Q12HR ORAL 12/25/19 21:00 01/24/20 13:14 12/27/19 08:20 Nitroglycerin (Nitro-Bid) 1 inch TID@0600,1200,1800 TOPIC 12/26/19 06:00 01/24/20 17:59 12/28/19 06:02 Pantoprazole (Protonix) 40 mg DAILY ORAL 12/26/19 09:00 01/23/20 08:59 12/27/19 08:20 Pravastatin Sodium (Pravachol) 20 mg BEDTIME ORAL 12/25/19 21:00 01/24/20 20:59 12/27/19 20:27 Vancomycin HCl (Vanco rx to dose) 1 ea DAILY PRN MISC Per rx protocol 12/26/19 09:00 01/23/20 02:14 Rei Seymour MD Dec 28, 2019 08:16
[2019-12-28] MEDS: Aspirin EC 81mg tab ORAL SCH (08:25)
[2019-12-28] MEDS: Cefepime HCl 1 GM in D5W 55 ML IVPB SCH ×2 (08:26→20:51)
[2019-12-28] MEDS ORDERED: Solu-MEDROL 40mg Inj IVP SCH (09:00)
--- NOTE | 2019-12-28 11:30 | Consultation ---
DATE OF CONSULTATION: 12/24/2019 PULMONARY CONSULTATION CONSULTING PHYSICIAN: Rei Seymour M.D. REASON FOR ADMISSION: Respiratory failure. REASON FOR CONSULTATION: Respiratory failure. HISTORY OF PRESENT ILLNESS: This is an 84-year-old female with history of lung cancer now for the past three years. The patient apparently had chemotherapy. The patient started immunotherapy approximately two months ago noted increasing shortness of breath. The patient was seen in the emergency room and admitted for possible COPD, possible congestive heart failure. The patient seen and evaluated, requiring BiPAP. The patient had some cough and congestion as well as orthopnea and wheezing. The patient's care discussed and reviewed. The patient was started on empiric therapy, also IV Solu-Medrol as well as Lasix. The case discussed and imaging reviewed. The patient's x-rays on 12/25/2019 suggestive of congestive heart failure, bilateral pleural effusions. The patient has had no fevers or chills, has been fairly steady and worsening overall severity. PAST MEDICAL HISTORY: COPD, lung cancer, coronary artery disease, hypertension, peripheral artery disease, hyperlipidemia, diabetes, arthritis, and degenerative disk disease. ALLERGIES: None. MEDICATIONS: Reviewed and reconciled. FAMILY HISTORY: Noncontributory to the above. SOCIAL HISTORY: The patient was a heavy smoker, quit approximately four years ago, greater than [id number]. Lives at home with the assistance of her daughter. REVIEW OF SYSTEMS: All 10 points reviewed and otherwise negative. The patient has no clear underlying history of CHF or pulmonary edema in the past. PHYSICAL EXAMINATION: GENERAL: A well-developed female. VITAL SIGNS: Blood pressure 112/64, pulse 96, sats 96% on 2 liters. HEENT: Negative. Extraocular movements are grossly intact. NECK: Supple. No jugular venous distention. LUNGS: With crackles at the both bases with some rhonchi and some wheezes. CARDIAC: S1 and S2. Regular rate and rhythm without murmurs, rubs, or gallops. ABDOMEN: Soft, nontender, and nondistended. EXTREMITIES: No cyanosis or clubbing. No significant edema. NEUROLOGIC: Grossly nonfocal. LABORATORY DATA: Sodium is 141, potassium 4.3, BUN 47, and creatinine 1.9. BNP 18,609, which is overall worse. Albumin is 2.4. CBC, white count 7, hematocrit 35, and platelets 192. Arterial blood gases noted. Chest x-ray shows what appears to be pulmonary edema and pleural effusions. IMPRESSION: Elevated natriuretic peptide consistent with pulmonary edema, possible COPD with acute exacerbation, history of lung cancer with concern for metastatic spread, coronary artery disease, hypertension, peripheral arterial disease, evidence of chronic kidney disease, severe protein-calorie malnutrition. RECOMMENDATIONS: Supportive care, empiric antibiotics, empiric steroids. Follow up arterial blood gases. Follow up acid-base exchange. BiPAP if needed. Consider CT of the chest to evaluate further if x-ray does not improve. Monitor on Lasix and diuresis for now. Maintain DVT prophylaxis, pain control. Advance directives should certainly be addressed. Rei Seymour M.D. DR: NEYMAR JOB#: [id number] CC: SARKIS
--- NOTE | 2019-12-28 11:35 | Diagnostic Imaging Report ---
Indication: Shortness of breath Technique: One view of the chest Comparison: 12/25/2019 Findings: Interstitial and airspace infiltrates in the left mid and lower lung appears slightly increased. Large pleural effusion on the right persists. Smaller left pleural effusion also again demonstrated. Impression: Increasing mid and lower lung initial interstitial and airspace disease on the right, over 3 days Other stable findings as described
[2019-12-28 12:00] VITALS: BP 112/63
[2019-12-28 16:00] VITALS: BP 117/60
[2019-12-28 20:00] VITALS: BP 114/56
[2019-12-29] VITALS: BP 101/55
--- NOTE | 2019-12-29 01:45 | Progress Note ---
DATE: 12/28/2019 CARDIOLOGY PROGRESS NOTE SUBJECTIVE: Cardiac monitoring reviewed by me. The patient with sinus rhythm and atrial ectopics, rare ventricular ectopics as well. She still has congestion and shortness of breath, but much improved. OBJECTIVE: VITAL SIGNS: Blood pressure 108/87, pulse 98, respirations 20, and afebrile. NECK: Jugular venous pressure is slightly elevated. LUNGS: With coarse breath sounds and few rhonchi. No wheezes. CARDIAC: Regular rhythm and rate. Normal S1 and S2 with a fourth heart sound and 1/6 systolic murmur at the apex. ABDOMEN: Soft. EXTREMITIES: No edema. LABORATORY DATA: White count 5.2 and hemoglobin 11.3. Sodium 137, potassium 5.2, BUN 37, and creatinine 1.5. Pro-natriuretic peptide down to 5200. ABG, 7.41, 46, 61. Chest x-ray today revealed increasing interstitial airspace disease on the right with pleural effusion. IMPRESSION: 1. Lung cancer, chronic obstructive pulmonary disease exacerbation, community associated pneumonia with pleural effusion. 2. Acute on chronic diastolic and systolic congestive heart failure. 3. Paroxysmal atrial ectopy, ischemic cardiomyopathy with stable angina. PLAN: 1. Antimicrobials. 2. Respiratory hygiene. 3. Taper steroids. 4. Mobilize DVT prophylaxis. 5. Topical nitrates. 6. Antiplatelet therapy with aspirin. 7. Cautious diuresis. Samuel Amos M.D. DR: CALLIE JOB#: [id number] CC:
[2019-12-29] MEDS: Albuterol/Ipratropium 3ml neb HHN SCH ×6 (03:52→23:13)
[2019-12-29 04:00] VITALS: BP 116/77
[2019-12-29] MEDS: NovoLOG Insulin Flexpen SUBQ SCH ×4 (06:04→21:16)
[2019-12-29] MEDS: Nitroglycerin 2% oint pkt TOPIC SCH ×3 (06:09→17:22)
[2019-12-29] MEDS: Heparin 5000 units/ml inj SUBQ SCH ×3 (06:09→21:15)
[2019-12-29 08:00] VITALS: BP 112/70
[2019-12-29] MEDS ORDERED: Vancomycin 1 GM in NS 275 ML IVPB SCH (08:00)
[2019-12-29] MEDS: Aspirin EC 81mg tab ORAL SCH (08:33)
--- NOTE | 2019-12-29 08:51 | Pulmonology Progress Note ---
Assessment/Plan Assessment/Plan 1. Acute on chronic systolic and diastolic congestive heart failure. 2. Ischemic cardiomyopathy. 3. Pulmonary edema 4. COPD with exacerbation. 5. Possible pneumonia. 6. Stage IV lung cancer. 7. Type 2 diabetes mellitus. 8. aspiration risk PLAN diurese on steroids; taper to off monitor imaging; repeat today ?? lymphangitic spread; CT chest oxygen as needed encourage cough BIPAP PRN monitor acid base impression, plan, and exam edited and reviewed in detail care discussed with RN Subjective Allergies: Coded Allergies: NO KNOWN ALLERGIES (Verified Allergy, Unknown, 10/10/16) Subjective care noted remains off BIPAP at present on oxygen no distress Objective Last 24 Hour Vital Signs Date Time Temp Pulse Resp B/P (MAP) Pulse Ox O2 Delivery O2 Flow Rate FiO2 12/29/19 08:33 119 112/73 12/29/19 08:00 97.7 117 18 112/70 (84) 91 12/29/19 07:30 92 45 12/29/19 07:04 116 23 90 35 12/29/19 06:54 90 Bi-Pap 35 12/29/19 06:09 132/71 12/29/19 05:41 120 25 90 35 12/29/19 04:00 Nasal Cannula 2.0 12/29/19 04:00 98.8 110 20 116/77 (90) 98 12/29/19 04:00 109 12/29/19 04:00 2.0 12/29/19 03:52 106 20 94 Nasal Cannula 3.0 32 109 20 90 12/29/19 02:16 113 23 90 35 12/29/19 01:06 110 20 93 Nasal Cannula 2.0 28 12/29/19 00:00 98.1 107 20 101/55 (70) 99 12/29/19 00:00 102 12/29/19 00:00 Nasal Cannula 2.0 12/29/19 00:00 2.0 12/28/19 23:28 104 20 96 Nasal Cannula 2.0 28 102 20 92 12/28/19 20:43 73 103/56 12/28/19 20:00 98 12/28/19 20:00 2.0 12/28/19 20:00 Nasal Cannula 2.0 12/28/19 20:00 98.4 106 20 114/56 (75) 98 2/17/20 19:29 98 20 98 Nasal Cannula 2.0 28 99 20 94 12/28/19 19:29 94 Nasal Cannula 2.0 28 12/28/19 17:12 117/60 12/28/19 16:12 98 12/28/19 16:00 Nasal Cannula 2.0 12/28/19 16:00 98.6 99 20 117/60 (79) 95 12/28/19 16:00 2.0 12/28/19 15:26 92 20 99 Nasal Cannula 2.0 28 86 20 97 12/28/19 12:17 112/63 12/28/19 12:00 2.0 12/28/19 12:00 Nasal Cannula 2.0 12/28/19 12:00 98.8 102 20 112/63 (79) 96 12/28/19 11:34 108 12/28/19 10:31 93 20 99 Nasal Cannula 2.0 28 95 20 97 Intake and Output 12/28/19 12/29/19 19:00 07:00 Intake Total 55 ml 55 ml Output Total 1000 ml 1400 ml Balance -945 ml -1345 ml IV Total 55 ml 55 ml Output Urine Total 1000 ml 1400 ml # Bowel Movements 2 Objective WDWN NAD reduced breath sounds bilaterally with some crackles [id number] without MRG NABS nontender no HSM no CC mild edema reduced LOC reviewed and edited Laboratory Tests 12/28/19 09:27: Arterial Blood pH 7.413, Arterial Blood Partial Pressure CO2 46.1H, Arterial Blood Partial Pressure O2 61.5L, Arterial Blood HCO3 28.8H, Arterial Blood Oxygen Saturation 91.4L, Arterial Blood Base Excess 3.6H, Kishor Test Positive 12/29/19 04:05: Random Vancomycin Level 11.2 Current Medications Medications (Trade) Dose Ordered Sig/Carlos Route PRN Reason Start Time Stop Time Status Last Admin Dose Admin Acetaminophen (Tylenol) 650 mg Q4H PRN ORAL Mild Pain/Temp > 100.5 12/25/19 19:04 01/24/20 19:03 Acetaminophen/ Hydrocodone Bitart ([place] 10/325) 1 tab Q4H PRN ORAL For Pain 12/25/19 19:05 01/01/20 19:04 Albuterol/ Ipratropium (Albuterol/ Ipratropium) 3 ml Q4HRT HHN 12/29/19 03:00 01/03/20 02:59 12/29/19 06:54 Aspirin (Ecotrin) 81 mg DAILY ORAL 12/26/19 09:00 01/24/20 13:14 12/29/19 08:33 Cefepime HCl 1 gm/ Dextrose 55 ml @ 110 mls/hr EVERY 12 HOURS IVPB 12/25/19 21:00 12/31/19 08:59 12/28/19 20:51 Dextrose (Dextrose 50%) 25 ml Q30M PRN IV Hypoglycemia 12/25/19 19:15 01/24/20 13:14 Dextrose (Dextrose 50%) 50 ml Q30M PRN IV Hypoglycemia 12/25/19 19:15 01/24/20 13:14 Heparin Sodium (Porcine) (Heparin 5000 units/ml) 5,000 units EVERY 8 HOURS SUBQ 12/25/19 22:00 01/23/20 07:59 12/29/19 06:09 Insulin Aspart (NovoLOG) BEFORE MEALS AND HS SUBQ 12/25/19 21:00 01/24/20 16:29 12/29/19 06:04 Magnesium Hydroxide (Mom) 30 ml DAILYPRN PRN ORAL Constipation 12/25/19 19:05 01/24/20 19:04 12/27/19 17:49 Metoprolol Tartrate (Lopressor) 25 mg Q12HR ORAL 12/25/19 21:00 01/24/20 13:14 12/29/19 08:33 Nitroglycerin (Nitro-Bid) 1 inch TID@0600,1200,1800 TOPIC 12/26/19 06:00 01/24/20 17:59 12/29/19 06:09 Pantoprazole (Protonix) 40 mg DAILY ORAL 12/26/19 09:00 01/23/20 08:59 12/29/19 08:33 Pravastatin Sodium (Pravachol) 20 mg BEDTIME ORAL 12/25/19 21:00 01/24/20 20:59 12/28/19 20:51 Prednisone (predniSONE) 20 mg DAILY ORAL 12/29/19 09:00 01/28/20 08:59 12/29/19 08:33 Vancomycin HCl (Vanco rx to dose) 1 ea DAILY PRN MISC Per rx protocol 12/26/19 09:00 01/23/20 02:14 Vancomycin HCl 1 gm/Sodium Chloride 275 ml @ 183.708 mls/hr ONCE IVPB 12/29/19 08:00 12/29/19 10:00 12/29/19 08:32 Rei Seymour MD Dec 29, 2019 08:51
[2019-12-29] MEDS: Cefepime HCl 1 GM in D5W 55 ML IVPB SCH ×2 (09:50→21:17)
[2019-12-29 12:00] VITALS: BP 118/70
[2019-12-29 16:00] VITALS: BP 110/65
[2019-12-29] MEDS ORDERED: HYDROcodone/Acetamin 10/325 tab ORAL PRN (17:00)
[2019-12-29] MEDS ORDERED: Milk of Magnesia 30ml Ud ORAL PRN (17:00)
[2019-12-29] MEDS ORDERED: Vancomycin 500mg/D5W 110ml IVPB ONE ×2 (17:00)
[2019-12-29] MEDS ORDERED: Vancomycin 500 MG in D5W 110 ML IVPB ONE (17:00)
[2019-12-29] MEDS ORDERED: D5W 275ml ONE (18:41)
[2019-12-29 20:00] VITALS: BP 120/69
[2019-12-29] MEDS ORDERED: NovoLOG Insulin Flexpen SUBQ SCH (21:00)
[2019-12-30] VITALS: BP 126/72
[2019-12-30] MEDS: Albuterol/Ipratropium 3ml neb HHN SCH ×6 (03:00→22:30)
--- NOTE | 2019-12-30 03:00 | Progress Note ---
DATE: 12/29/2019 CARDIOLOGY PROGRESS NOTE SUBJECTIVE: The patient has less congestion and shortness of breath. She has been off BiPAP. She is on taper dose of steroids. She continues on nasal oxygen. Monitored rhythm, sinus tachycardia. OBJECTIVE: VITAL SIGNS: Blood pressure 112/73, pulse 119, respirations 18, afebrile. CARDIAC: Bilateral breath sounds, rhonchi. CARDIAC: Regular rhythm, rapid rate. Normal S1, S2. ABDOMEN: Soft. EXTREMITIES: Trace edema. IMPRESSION: 1. COPD with exacerbation. 2. Paroxysmal bronchospasm. 3. Community-acquired pneumonia. 4. Stage IV lung cancer. 5. Acute and chronic diastolic congestive heart failure. 6. Ischemic cardiomyopathy. 7. Skin wound. 8. Severe protein-calorie malnutrition. PLAN: 1. Steroid taper. 2. Antimicrobials. 3. Followup radiographs of the chest. 4. Diuresis. 5. Mobilization. 6. Skin care. 7. Discharge planning. Samuel Amos M.D. DR: Dino JOB#: [id number] CC:
[2019-12-30 04:00] VITALS: BP 110/70
[2019-12-30 04:22] LABS: EOSINOPHILS % (AUTO) 0.3 % (0.0-3.0); HEMATOCRIT 40.7 % (37.0-47.0); HEMOGLOBIN 13.4 G/DL (12.0-16.0); LYMPHOCYTES % (AUTO) 8.5 % (20.0-45.0); MEAN CORPUSCULAR VOLUME 79 FL (80-99); MONOCYTES % (AUTO) 5.6 % (1.0-10.0); NEUTROPHILS % (AUTO) 84.6 % (45.0-75.0); PLATELET COUNT 192 K/UL (150-450); RED BLOOD COUNT 5.18 M/UL (4.20-5.40); RED CELL DISTRIBUTION WIDTH 16.1 % (11.6-14.8); WHITE BLOOD COUNT 10.4 K/UL (4.8-10.8)
[2019-12-30 04:51] LABS: ANION GAP 5 mmol/L (5-15); BLOOD UREA NITROGEN 34 mg/dL (7-18); CALCIUM 9.7 MG/DL (8.5-10.1); CARBON DIOXIDE 31 MMOL/L (21-32); CHLORIDE 100 MMOL/L (98-107); CREATININE 1.6 MG/DL (0.55-1.30); POTASSIUM 4.4 MMOL/L (3.5-5.1); SODIUM 136 MMOL/L (136-145)
[2019-12-30] MEDS: Nitroglycerin 2% oint pkt TOPIC SCH ×3 (06:00→18:04)
[2019-12-30] MEDS: Heparin 5000 units/ml inj SUBQ SCH ×3 (06:32→22:06)
[2019-12-30] MEDS: NovoLOG Insulin Flexpen SUBQ SCH ×4 (06:33→21:00)
--- NOTE | 2019-12-30 07:15 | Pulmonology Progress Note ---
Assessment/Plan Assessment/Plan Pulmonary Progress Note Assessment/Plan 1. Acute on chronic systolic and diastolic congestive heart failure. 2. Ischemic cardiomyopathy. 3. Pulmonary edema 4. COPD with exacerbation. 5. Possible pneumonia. 6. Stage IV lung cancer. 7. Type 2 diabetes mellitus. 8. aspiration risk PLAN diurese on steroids; taper as tolerated monitor imaging; repeat today possible lymphangitic spread; CT chest oxygen as needed encourage cough BIPAP PRN monitor acid base impression, plan, and exam edited and reviewed in detail care discussed with RN Subjective Allergies: Coded Allergies: NO KNOWN ALLERGIES (Verified Allergy, Unknown, 10/10/16) Subjective care noted BIPAP PRN on NC oxygen no distress Objective Vital Signs Noted Objective WDWN NAD reduced breath sounds bilaterally with some crackles [id number] without MRG NABS nontender no HSM no CC mild edema reduced LOC reviewed and edited Laboratory Tests 12/28/19 09:27: Arterial Blood pH 7.413, Arterial Blood Partial Pressure CO2 46.1H, Arterial Blood Partial Pressure O2 61.5L, Arterial Blood HCO3 28.8H, Arterial Blood Oxygen Saturation 91.4L, Arterial Blood Base Excess 3.6H, Kishor Test Positive 12/29/19 04:05: Random Vancomycin Level 11.2 Current Medications Medications (Trade) Dose Ordered Sig/Carlos Route PRN Reason Start Time Stop Time Status Last Admin Dose Admin Acetaminophen (Tylenol) 650 mg Q4H PRN ORAL Mild Pain/Temp > 100.5 12/25/19 19:04 01/24/20 19:03 Acetaminophen/ Hydrocodone Bitart ([place] 10/325) 1 tab Q4H PRN ORAL For Pain 12/25/19 19:05 01/01/20 19:04 Albuterol/ Ipratropium (Albuterol/ Ipratropium) 3 ml Q4HRT HHN 12/29/19 03:00 01/03/20 02:59 12/29/19 06:54 Aspirin (Ecotrin) 81 mg DAILY ORAL 12/26/19 09:00 01/24/20 13:14 12/29/19 08:33 Cefepime HCl 1 gm/ Dextrose 55 ml @ 110 mls/hr EVERY 12 HOURS IVPB 12/25/19 21:00 12/31/19 08:59 12/28/19 20:51 Dextrose (Dextrose 50%) 25 ml Q30M PRN IV Hypoglycemia 12/25/19 19:15 01/24/20 13:14 Dextrose (Dextrose 50%) 50 ml Q30M PRN IV Hypoglycemia 12/25/19 19:15 01/24/20 13:14 Heparin Sodium (Porcine) (Heparin 5000 units/ml) 5,000 units EVERY 8 HOURS SUBQ 12/25/19 22:00 01/23/20 07:59 12/29/19 06:09 Insulin Aspart (NovoLOG) BEFORE MEALS AND HS SUBQ 12/25/19 21:00 01/24/20 16:29 12/29/19 06:04 Magnesium Hydroxide (Mom) 30 ml DAILYPRN PRN ORAL Constipation 12/25/19 19:05 01/24/20 19:04 12/27/19 17:49 Metoprolol Tartrate (Lopressor) 25 mg Q12HR ORAL 12/25/19 21:00 01/24/20 13:14 12/29/19 08:33 Nitroglycerin (Nitro-Bid) 1 inch TID@0600,1200,1800 TOPIC 12/26/19 06:00 01/24/20 17:59 12/29/19 06:09 Pantoprazole (Protonix) 40 mg DAILY ORAL 12/26/19 09:00 01/23/20 08:59 12/29/19 08:33 Pravastatin Sodium (Pravachol) 20 mg BEDTIME ORAL 12/25/19 21:00 01/24/20 20:59 12/28/19 20:51 Prednisone (predniSONE) 20 mg DAILY ORAL 12/29/19 09:00 01/28/20 08:59 12/29/19 08:33 Vancomycin HCl (Vanco rx to dose) 1 ea DAILY PRN MISC Per rx protocol 12/26/19 09:00 01/23/20 02:14 Vancomycin HCl 1 gm/Sodium Chloride 275 ml @ 183.708 mls/hr ONCE IVPB 12/29/19 08:00 12/29/19 10:00 12/29/19 08:32 Subjective ROS Limited/Unobtainable: No Allergies: Coded Allergies: NO KNOWN ALLERGIES (Verified Allergy, Unknown, 10/10/16) Objective Last 24 Hour Vital Signs Date Time Temp Pulse Resp B/P (MAP) Pulse Ox O2 Delivery O2 Flow Rate FiO2 2/19/20 06:00 100/59 12/30/19 04:00 2.0 12/30/19 04:00 98.7 88 28 110/70 (83) 90 12/30/19 04:00 97 12/30/19 00:42 121 36 89 45 12/30/19 00:00 98.2 88 28 126/72 (90) 90 12/30/19 00:00 45 12/30/19 00:00 113 12/29/19 23:16 111 31 90 45 12/29/19 23:13 110 22 93 Nasal Cannula 5.0 40 113 22 90 12/29/19 21:44 97.9 12/29/19 21:16 106 110/65 12/29/19 21:00 Nasal Cannula 4.0 12/29/19 20:00 100 12/29/19 20:00 98.2 115 28 120/69 (86) 90 12/29/19 20:00 2.0 12/29/19 19:44 90 Nasal Cannula 5.0 40 12/29/19 19:43 106 22 96 Nasal Cannula 5.0 40 109 24 92 12/29/19 17:22 110/65 12/29/19 16:00 Nasal Cannula 4.0 12/29/19 16:00 97.9 103 25 110/65 (80) 93 12/29/19 16:00 2.0 12/29/19 15:27 104 12/29/19 15:08 101 24 95 Nasal Cannula 5.0 40 102 26 92 12/29/19 13:01 90 12/29/19 13:00 2.0 12/29/19 12:59 45 12/29/19 12:20 120/69 12/29/19 12:00 Nasal Cannula 4.0 12/29/19 12:00 98.3 108 29 118/70 (86) 92 12/29/19 11:46 100 12/29/19 10:58 105 27 90 Bi-Pap 45 102 21 91 45 12/29/19 09:05 111 23 92 45 12/29/19 09:00 Bi-pap 12/29/19 08:33 119 112/73 12/29/19 08:00 45 12/29/19 08:00 97.7 117 18 112/70 (84) 91 12/29/19 07:45 118 12/29/19 07:30 92 45 Intake and Output 12/29/19 12/30/19 19:00 07:00 Intake Total 1075.000 ml Output Total 700 ml 800 ml Balance 375.000 ml -800 ml Intake Oral 800 ml IV Total 275.000 ml Output Urine Total 700 ml 800 ml # Bowel Movements 3 Laboratory Tests 12/30/19 04:14: White Blood Count 10.4, Red Blood Count 5.18, Hemoglobin 13.4, Hematocrit 40.7, Mean Corpuscular Volume 79L, Mean Corpuscular Hemoglobin 25.8L, Mean Corpuscular Hemoglobin Concent 32.8, Red Cell Distribution Width 16.1H, Platelet Count 192, Mean Platelet Volume 8.6, Neutrophils (%) (Auto) 84.6H, Lymphocytes (%) (Auto) 8.5L, Monocytes (%) (Auto) 5.6, Eosinophils (%) (Auto) 0.3, Basophils (%) (Auto) 1.0, Sodium Level 136, Potassium Level 4.4, Chloride Level 100, Carbon Dioxide Level 31, Anion Gap 5, Blood Urea Nitrogen 34H, Creatinine 1.6H, Estimat Glomerular Filtration Rate 37.3, Glucose Level 154H, Calcium Level 9.7, Magnesium Level 2.3, Pro-B-Type Natriuretic Peptide 9559H Current Medications Medications (Trade) Dose Ordered Sig/Carlos Route PRN Reason Start Time Stop Time Status Last Admin Dose Admin Acetaminophen (Tylenol) 650 mg Q4H PRN ORAL Mild Pain/Temp > 100.5 12/29/19 17:00 01/24/20 16:59 Acetaminophen/ Hydrocodone Bitart ([place] 10/325) 1 tab Q4H PRN ORAL For Pain 12/29/19 17:00 01/01/20 16:59 12/29/19 21:14 Albuterol/ Ipratropium (Albuterol/ Ipratropium) 3 ml Q4HRT HHN 12/29/19 19:00 01/03/20 02:59 12/29/19 23:13 Aspirin (Ecotrin) 81 mg DAILY ORAL 12/30/19 09:00 01/24/20 13:14 Cefepime HCl 1 gm/ Dextrose 55 ml @ 110 mls/hr EVERY 12 HOURS IVPB 12/29/19 21:00 12/31/19 08:59 12/29/19 21:17 Dextrose (Dextrose 50%) 25 ml Q30M PRN IV Hypoglycemia 12/29/19 16:45 01/24/20 13:14 Dextrose (Dextrose 50%) 50 ml Q30M PRN IV Hypoglycemia 12/29/19 16:45 01/24/20 13:14 Heparin Sodium (Porcine) (Heparin 5000 units/ml) 5,000 units EVERY 8 HOURS SUBQ 12/29/19 22:00 01/23/20 07:59 12/30/19 06:32 Insulin Aspart (NovoLOG) BEFORE MEALS AND HS SUBQ 12/29/19 17:02 01/28/20 17:01 12/30/19 06:33 Magnesium Hydroxide (Mom) 30 ml DAILYPRN PRN ORAL Constipation 12/29/19 17:00 01/24/20 16:59 Metoprolol Tartrate (Lopressor) 50 mg Q12HR ORAL 12/30/19 09:00 01/29/20 08:59 Nitroglycerin (Nitro-Bid) 1 inch TID@0600,1200,1800 TOPIC 12/29/19 18:00 01/24/20 17:59 12/29/19 17:22 Pantoprazole (Protonix) 40 mg DAILY ORAL 12/30/19 09:00 01/23/20 08:59 Pravastatin Sodium (Pravachol) 20 mg BEDTIME ORAL 12/29/19 21:00 01/24/20 20:59 12/29/19 21:14 Prednisone (predniSONE) 20 mg DAILY ORAL 12/30/19 09:00 01/28/20 08:59 Vancomycin HCl (Vanco rx to dose) 1 ea DAILY PRN MISC Per rx protocol 12/30/19 09:00 01/23/20 02:14 Vancomycin/Sodium Chloride 275 ml @ 183.333 mls/hr Q48H IVPB 12/31/19 17:00 01/05/20 16:59 Samuel Akers MD Dec 30, 2019 07:15
[2019-12-30 08:00] VITALS: BP 120/64
[2019-12-30] MEDS: Metoprolol Tartrate 50mg tab ORAL SCH ×2 (09:42→22:01)
[2019-12-30] MEDS: Aspirin EC 81mg tab ORAL SCH (09:42)
[2019-12-30] MEDS: Cefepime HCl 1 GM in D5W 55 ML IVPB SCH ×2 (09:44→22:01)
[2019-12-30] MEDS ORDERED: Albuterol/Ipratropium 3ml neb HHN SCH (11:15)
[2019-12-30 12:00] VITALS: BP 114/63
[2019-12-30 16:00] VITALS: BP 113/60
[2019-12-30 20:00] VITALS: BP 130/67
[2019-12-31] VITALS (7 sets, daily range): BP systolic 105–131; BP diastolic 59–70
--- NOTE | 2019-12-31 02:30 | Progress Note ---
DATE: 12/30/2019 SUBJECTIVE: The patient feels better, but still weak, minimally able to mobilize and get out of bed. Less shortness of breath. OBJECTIVE: VITAL SIGNS: Blood pressure 130/67, pulse 90, and respiratory rate 24. Monitored rhythm sinus. She is afebrile. Oxygen saturation still decreased to 93% on 5 L. LUNGS: Diminished breath sounds. Few rales. CARDIAC: Regular rhythm and rate. Normal S1 and S2. ABDOMEN: Soft. EXTREMITIES: No edema. LABORATORY DATA: White count 10.4 and hemoglobin 13.4. Potassium 4.4, BUN 34, creatinine 1.6, and glucose 154. Pro-natriuretic peptide has increased to 9500. IMPRESSION: 1. Acute on chronic diastolic congestive heart failure. 2. COPD. 3. Pneumonia. 4. Lung cancer. 5. Hypertensive heart disease. 6. Ischemic cardiomyopathy. 7. Hypoxia. PLAN: 1. Steroid tapering. 2. Diuresis. 3. Completion of antimicrobials. 4. Titrate anti-failure and antianginal regimen. 5. Discussions are underway with family members and patient for disposition as the patient will likely benefit from a short course of rehabilitation at a longterm facility. Samuel Amos M.D. : [place] JOB#: [id number] CC:
[2019-12-31] MEDS: Albuterol/Ipratropium 3ml neb HHN SCH ×6 (03:25→22:45)
[2019-12-31] MEDS: Nitroglycerin 2% oint pkt TOPIC SCH ×3 (05:49→17:38)
[2019-12-31] MEDS: Heparin 5000 units/ml inj SUBQ SCH ×3 (06:00→21:13)
[2019-12-31] MEDS: NovoLOG Insulin Flexpen SUBQ SCH ×4 (06:02→21:00)
[2019-12-31 08:28] LABS: ALANINE AMINOTRANSFERASE 15 U/L (12-78); ALBUMIN 2.2 G/DL (3.4-5.0); ALBUMIN/GLOBULIN RATIO 0.5 (1.0-2.7); ALKALINE PHOSPHATASE 60 U/L (46-116); ANION GAP 9 mmol/L (5-15); ASPARTATE AMINO TRANSFERASE 19 U/L (15-37); BILIRUBIN,TOTAL 0.3 MG/DL (0.2-1.0); BLOOD UREA NITROGEN 42 mg/dL (7-18); CALCIUM 9.3 MG/DL (8.5-10.1); CARBON DIOXIDE 29 MMOL/L (21-32); CHLORIDE 101 MMOL/L (98-107); CREATININE 1.5 MG/DL (0.55-1.30); POTASSIUM 4.7 MMOL/L (3.5-5.1); SODIUM 138 MMOL/L (136-145)
[2019-12-31] MEDS: Metoprolol Tartrate 50mg tab ORAL SCH ×2 (08:46→21:10)
[2019-12-31] MEDS: Aspirin EC 81mg tab ORAL SCH (08:46)
[2019-12-31] MEDS: Cefepime HCl 1 GM in D5W 55 ML IVPB SCH ×2 (08:48→21:16)
--- NOTE | 2019-12-31 12:34 | Consultation ---
History of Present Illness General Date patient seen: Dec 31, 2019 Reason for Hospitalization: Dyspnea/Respdistress Present Illness HPI This is a unfortunate 84-year-old female with history of metastatic lung cancer , hypertension, ischemic cardiomyopathy, and diabetes and COPD who presented with complaints of worsening shortness of breath. The patient previously was seen at an outside hospital well over a week ago for similar symptoms. She was discharged from the ER after improving with breathing treatments. She is currently on BiPAP. She is somewhat somnolent and sleepy. According to the patient's daughter, she has been receiving her chemotherapy. She denies any fever or chills. She has had a mild nonproductive cough. She was previously given antibiotics and seen at the outside hospital. She is currently admitted to [facility] for further care and management. During admission identified to have a partial thickness sacral decubitus ulcer forming and I was called by the patient's medical team to assist with care and management and ensure that all possible precautions were taken to avoid further skin breakdown as well as aid in healing wound. Patient seen, patient evaluated, chart reviewed. Family member at bedside and long discussion had about the above findings and goals of care and care plan Allergies: Coded Allergies: NO KNOWN ALLERGIES (Verified Allergy, Unknown, 10/10/16) Medication History Scheduled Benzonatate (Tessalon Perle), 100 MG ORAL THREE TIMES A DAY, (Reported) Metoprolol Succinate* (Metoprolol Succinate*), 50 MG ORAL DAILY, (Reported) Metoprolol Succinate* (Metoprolol Succinate*), 25 MG ORAL DAILY, (Reported) Scheduled PRN Ipratropium [place] 0.5MG/2.5ML (Ipratropium [place] 0.5MG/2.5ML), 0.5 MG HHN Q6H PRN for Shortness of Breath, (Reported) Miscellaneous Medications Acetaminophen (Acetaminophen), Unknown Dose ORAL, (Reported) Acetaminophen With Codeine (T#3) (Tylenol #3 Tab*), Unknown Dose ORAL, (Reported ) Aspirin (Aspirin EC), Unknown Dose ORAL, (Reported) Fluticasone Furoate (Arnuity Ellipta), 100 MCG IH, (Reported) Ibuprofen* (Motrin*), Unknown Dose ORAL, (Reported) Isosorbide Dinitrate (Isosorbide Dinitrate), Unknown Dose PO, (Reported) Nitroglycerin (Nitroglycerin), Unknown Dose PO, (Reported) Omeprazole (Omeprazole), Unknown Dose ORAL, (Reported) Simvastatin (Zocor), Unknown Dose ORAL, (Reported) Patient History Limited by: medical condition History Provided By: Patient, Medical Record, PMD Healthcare decision maker Resuscitation status Full Code Advanced Directive on File Past Medical/Surgical History Past Medical/Surgical History: (1) Malnutrition (2) Decubitus skin ulcer (3) CHF exacerbation (4) RADHA (acute kidney injury) (5) COPD with exacerbation (6) HCAP (healthcare-associated pneumonia) (7) Pneumonia (8) Respiratory failure with hypoxia Review of Systems Review of Symptoms General ROS: no weight loss or fever Psychological ROS: no depression or mood changes, no memory loss Ophthalmic ROS: no visual changes or eye irritation ENT ROS: no nasal congestion, hearing loss, dizziness Allergy and Immunology ROS: no allergic symptoms or urticaria Hematological and Lymphatic ROS: no swollen glands, unusual bleeding or bruising Endocrine ROS: no polyuria, polydipsia, weight changes, temperature intolerance Respiratory ROS: no cough, shortness of breath, or wheezing Cardiovascular ROS: no chest pain or dyspnea on exertion Gastrointestinal ROS: denies abdominal pain, bright red blood in stool. Musculoskeletal ROS: no myalgias or arthralgias Neurological ROS: no TIA or stroke symptoms Dermatological ROS: no new or changing skin lesions, rashes or pruritis Physical Exam Physical Exam General appearance: alert, cooperative, no distress, appears stated age Head: Normocephalic, without obvious abnormality, atraumatic Eyes: conjunctivae/corneas clear. PERRL, EOM's intact. Fundi benign Throat: Lips, mucosa, and tongue normal. Teeth and gums normal Neck: supple, symmetrical, trachea midline, no adenopathy, thyroid: not enlarged, symmetric, no tenderness/mass/nodules, no carotid bruit and no JVD Lungs: clear to auscultation bilaterally Heart: regular rate and rhythm, S1, S2 normal, no murmur, click, rub or gallop Abdomen: soft, non-tender. Bowel sounds normal. No masses, no organomegaly Extremities: extremities normal, atraumatic, no cyanosis or edema Pulses: 2+ and symmetric Skin: Skin color, texture, turgor normal. No rashes or lesions Neurologic: Grossly normal Last 24 Hour Vital Signs Date Time Temp Pulse Resp B/P (MAP) Pulse Ox O2 Delivery O2 Flow Rate FiO2 12/31/19 10:52 88 20 97 Nasal Cannula 5.0 40 84 20 95 12/31/19 09:00 Nasal Cannula 4.0 12/31/19 08:46 93 113/61 12/31/19 08:00 98.8 93 20 113/61 (78) 97 12/31/19 08:00 93 12/31/19 08:00 4.0 12/31/19 07:32 95 22 95 Nasal Cannula 5.0 40 95 22 95 12/31/19 07:32 95 Nasal Cannula 5.0 40 12/31/19 05:49 107/59 12/31/19 05:34 92 107/59 (75) 12/31/19 04:00 97.5 92 20 131/70 (90) 94 12/31/19 04:00 85 12/31/19 04:00 4.0 12/31/19 03:26 98 26 97 60 12/31/19 03:25 101 24 98 Bi-Pap 60 98 22 95 12/31/19 00:45 87 32 92 60 12/31/19 00:00 96 12/31/19 00:00 50 12/31/19 00:00 97.2 97 24 123/65 (84) 91 12/30/19 22:32 93 20 96 Nasal Cannula 5.0 40 92 20 92 12/30/19 22:01 98 130/67 12/30/19 21:00 Nasal Cannula 4.0 12/30/19 20:00 90 12/30/19 20:00 4.0 12/30/19 20:00 97.5 98 24 130/67 (88) 96 12/30/19 19:57 92 22 97 Nasal Cannula 5.0 40 90 21 93 12/30/19 19:56 93 Nasal Cannula 5.0 40 12/30/19 18:04 113/60 12/30/19 16:00 2.0 12/30/19 16:00 89 12/30/19 16:00 97.4 91 21 113/60 (77) 95 12/30/19 15:39 104 22 97 Nasal Cannula 5.0 40 76 22 94 12/30/19 12:36 114/63 Intake and Output 12/30/19 12/31/19 19:00 07:00 Intake Total 600 ml Output Total 850 ml Balance 600 ml -850 ml Other 600 ml Output Urine Total 850 ml Laboratory Tests Test 12/31/19 06:30 Prothrombin Time 10.2 SEC (9.30-11.50) Prothromb Time International Ratio 1.0 (0.9-1.1) Activated Partial Thromboplast Time 27 SEC (23-33) Sodium Level 138 MMOL/L (136-145) Potassium Level 4.7 MMOL/L (3.5-5.1) Chloride Level 101 MMOL/L (98-107) Carbon Dioxide Level 29 MMOL/L (21-32) Anion Gap 9 mmol/L (5-15) Blood Urea Nitrogen 42 mg/dL (7-18) H Creatinine 1.5 MG/DL (0.55-1.30) H Estimat Glomerular Filtration Rate 40.2 mL/min (>60) Glucose Level 146 MG/DL (74-106) H Calcium Level 9.3 MG/DL (8.5-10.1) Magnesium Level 2.5 MG/DL (1.8-2.4) H Total Bilirubin 0.3 MG/DL (0.2-1.0) Aspartate Amino Transf (AST/SGOT) 19 U/L (15-37) Alanine Aminotransferase (ALT/SGPT) 15 U/L (12-78) Alkaline Phosphatase 60 U/L (46-116) Total Protein 6.8 G/DL (6.4-8.2) Albumin 2.2 G/DL (3.4-5.0) L Globulin 4.6 g/dL Albumin/Globulin Ratio 0.5 (1.0-2.7) L Height (Feet): 5 Height (Inches): 6.00 Weight (Pounds): 101 Medications Current Medications Medications (Trade) Dose Ordered Sig/Carlos Route PRN Reason Start Time Stop Time Status Last Admin Dose Admin Acetaminophen (Tylenol) 650 mg Q4H PRN ORAL Mild Pain/Temp > 100.5 12/29/19 17:00 01/24/20 16:59 12/30/19 09:43 Acetaminophen/ Hydrocodone Bitart ([place] 10/325) 1 tab Q4H PRN ORAL For Pain 12/29/19 17:00 01/01/20 16:59 12/29/19 21:14 Albuterol/ Ipratropium (Albuterol/ Ipratropium) 3 ml Q4HRT HHN 12/29/19 19:00 01/03/20 02:59 12/31/19 10:50 Aspirin (Ecotrin) 81 mg DAILY ORAL 12/30/19 09:00 01/24/20 13:14 12/31/19 08:46 Cefepime HCl 1 gm/ Dextrose 55 ml @ 110 mls/hr EVERY 12 HOURS IVPB 12/29/19 21:00 01/03/20 09:29 12/31/19 08:48 Dextrose (Dextrose 50%) 25 ml Q30M PRN IV Hypoglycemia 12/29/19 16:45 01/24/20 13:14 Dextrose (Dextrose 50%) 50 ml Q30M PRN IV Hypoglycemia 12/29/19 16:45 01/24/20 13:14 Heparin Sodium (Porcine) (Heparin 5000 units/ml) 5,000 units EVERY 8 HOURS SUBQ 12/29/19 22:00 01/23/20 07:59 12/30/19 22:06 Insulin Aspart (NovoLOG) BEFORE MEALS AND HS SUBQ 12/29/19 17:02 01/28/20 17:01 12/30/19 18:06 Magnesium Hydroxide (Mom) 30 ml DAILYPRN PRN ORAL Constipation 12/29/19 17:00 01/24/20 16:59 Metoprolol Tartrate (Lopressor) 50 mg Q12HR ORAL 12/30/19 09:00 01/29/20 08:59 12/31/19 08:46 Nitroglycerin (Nitro-Bid) 1 inch TID@0600,1200,1800 TOPIC 12/29/19 18:00 01/24/20 17:59 12/31/19 05:49 Pantoprazole (Protonix) 40 mg DAILY ORAL 12/30/19 09:00 01/23/20 08:59 12/31/19 08:46 Pravastatin Sodium (Pravachol) 20 mg BEDTIME ORAL 12/29/19 21:00 01/24/20 20:59 12/30/19 22:00 Prednisone (predniSONE) 20 mg DAILY ORAL 12/30/19 09:00 01/28/20 08:59 12/31/19 08:46 Vancomycin HCl (Vanco rx to dose) 1 ea DAILY PRN MISC Per rx protocol 12/30/19 09:00 01/23/20 02:14 Vancomycin/Sodium Chloride 275 ml @ 183.333 mls/hr Q48H IVPB 12/31/19 17:00 01/05/20 16:59 Assessment/Plan Problem List: (1) CHF exacerbation ICD Codes: I50.9 - Heart failure, unspecified SNOMED: 233205154, 50472270294324 Qualifiers: Qualified Codes: I50.9 - Heart failure, unspecified (2) RADHA (acute kidney injury) ICD Codes: N17.9 - Acute kidney failure, unspecified SNOMED: 43793240, 6967517 (3) COPD with exacerbation ICD Codes: J44.1 - Chronic obstructive pulmonary disease with (acute) exacerbation SNOMED: 882608546, 1475288 (4) HCAP (healthcare-associated pneumonia) ICD Codes: J18.9 - Pneumonia, unspecified organism SNOMED: 480111743, 667656046 (5) Pneumonia ICD Codes: J18.9 - Pneumonia, unspecified organism SNOMED: 449845031 (6) Respiratory failure with hypoxia ICD Codes: J96.91 - Respiratory failure, unspecified with hypoxia SNOMED: 44268852724880104 Qualifiers: Qualified Codes: J96.21 - Acute and chronic respiratory failure with hypoxia (7) Decubitus skin ulcer Assessment & Plan: Pt presented on admission with resolving pressure injury sacrum. Base of wound is pale pink and dry with surrounding hyperpigmented borders.(L)3.5cm x (W)2.5cm. In close proximity to Sacrum on L gluteal cheek a Partial thickness pressure injury noted. Base of wound is moist and viable. Edges flat and adherent to base of wound Darker skin tone without induration periwound. Non-blanchable erythema noted to R and L heels. Both heels are boggy but non- tender when minimally palpated. Dry flaking skin noted to both lower ext and both feet.Skin moisturized with Phytoplex Skin Nourishing lotion. Since admission there has been breakdown of the epidermal tissue and a partial thickness stage II decubitus ulcer forming just around the apex of the sacral bone 1 cm x 1 cm without dermal breakdown periwound erythema scaly skin identified. Patient is currently on an air mattress and wound care being performed by nursing team. Discussion had with patient and family member at bedside in regards to these findings and care plan Tx.Plan: Apply Moisture Barrier Paste to Sacrum and L buttocks. Cover with Optifoam drsg. Change every 3 days and prn. Apply Cavilon Skin Barrier to both heels. Cover each heel with Optifoam drsg. Change every 7 days and prn. Reposition at least every 2 hours or as tolerated. Off-load heels with pillow.. APM/GAURAV Mattress overlay. Air soft mattress Nutritional optimization We will follow with recommendations thank you for let me participate in patient' s care ICD Codes: L89.90 - Pressure ulcer of unspecified site, unspecified stage SNOMED: 246980408 (8) Malnutrition Assessment & Plan: DAILY ESTIMATED NEEDS: Needs based on COPD, CA, Underweight/ 47.7kg 30-35 kcals/kg 4064-4332 total kcals 1.25-1.5 g protein/kg 60-72 g total protein 25-30 mL/kg 8115-5827 total fluid mLs NUTRITION DIAGNOSIS: 1) Increased kcal and pro needs r/t underweight status, cancer as evidenced by pt w/ stage 4 lung cancer, on chemo, BMI underweight per guidelines, @81 % of ideal body weight w/ generalized moderate to severe wasting. CURRENT DIET:No Added Salt ms finely chopped PO DIET RECOMMENDATIONS: Liberalized REGULAR for improved PO / texture per BOREMATIC MACHINE OPERATOR ADDITIONAL RECOMMENDATIONS: 1) Add Glucerna TID w/ meals 2) BOREMATIC MACHINE OPERATOR eval for appropriate texture 3) WOUND care eval -> add GALE BID + MVI x 1, Vit C 250mg x 1 4) Daily wts, calibrated 5) Monitor for continued improved PO intake 6) W/ PO intake consistently >75%, rec LOW NA, CCHO MED diet ICD Codes: E46 - Unspecified protein-calorie malnutrition SNOMED: 12746322 Henrik Maxwell Dec 31, 2019 12:34
--- NOTE | 2019-12-31 12:37 | Pre-Procedure Note/Attestation ---
Pre-Procedure Note/Attestation Complete Prior to Procedure Planned Procedure: right Procedure Narrative: thoracentesis Indications for Procedure Pre-Operative Diagnosis: pleural effusion Attestation I attest that I discussed the nature of the procedure; its benefits; risks and complications; and alternatives (and the risks and benefits of such alternatives ), prior to the procedure, with the patient (or the patient's legal payable representative). I attest that, if there was a reasonable possibility of needing a blood transfusion, the patient (or the patient's legal payable representative) was given the [facility] standardized written summary, pursuant to the [place] Blood Safety Act ([place] Health and Safety Code # 1645, as amended). I attest that I re-evaluated the patient just prior to the surgery and that there has been no change in the patient's H&P, except as documented below: Discussed with pt. and daughter Jack Neumann MD Dec 31, 2019 12:37
--- NOTE | 2019-12-31 12:40 | Brief Operative Note ---
Immediate Post Operative Note Operative Note Pre-op Diagnosis: pleural effusion Procedure: thoracentesis Post-op Diagnosis: same as pre-op Surgeon: Jessy Wagner Anesthesia: local Specimen: yes - 20 ml bloody fluid Complications: yes - small basilar PTX Condition: stable Fluids: none Implant(s) used?: No Jack Wagner MD Dec 31, 2019 12:40
--- NOTE | 2019-12-31 14:06 | Diagnostic Imaging Report ---
Indication: Status post thoracentesis Technique: One view of the chest Comparison: 12/28/2019 Findings: There is a small right lateral basilar pneumothorax. This is essentially identical in size to the space occupied by the pleural fluid on the previous study, although is larger than expected based on the volume of fluid removed at the time of thoracentesis. There is thickening of the visceral pleura. Again demonstrated is a well-defined opacity to the right of the right heart border. Again demonstrated is interstitial and airspace disease at the left lung base and a likely small left pleural effusion. A round calcification projects at the left lung base. The heart size is normal. There is evidence of prior CABG. Impression: Right lateral basilar pneumothorax. Likely and ex vacuo pneumothorax, given similarity in size of the air collection to the previously demonstrated right pleural effusion. In addition, the central pleural thickening raises likelihood of a trapped lung. A follow-up radiograph is been ordered for 1429 and this was discussed by phone with Dr. Amos Unchanged opacity to the right of the heart. This could represent loculated pleural fluid, given findings on recent sonography, but could also represent a mass or a very circumscribed area of consolidation Unchanged left basilar interstitial and airspace infiltrate and likely small left pleural effusion
--- NOTE | 2019-12-31 14:50 | Diagnostic Imaging Report ---
Indications: Pleural effusion Technique: Procedure performed at bedside. Informed consent obtained from patient and patient's daughter immediately preprocedure. Ultrasound used to localize optimal puncture site. Sterile prepping and draping right chest. Local anesthesia with 1% lidocaine. Ultrasound imaging revealed small complex multiloculated effusion. Under real-time ultrasound guidance, puncture pleural space using thoracentesis needle. Puncture was difficult due to the small size of the collection and approximately ribs limiting visualization of the pleural fluid. Stylet removed. Catheter placed to vacuum bottle suction. Total 25 mL milliliters of of grossly bloody fluid aspirated. Patient tolerated procedure well, without immediate complication. A specimen was sent to the lab Findings: Followup sonography demonstrates complete resolution of pleural fluid. Follow-up chest radiograph demonstrates a small right lateral pneumothorax, stable on the second chest radiograph of 2 hours later Impression: Successful ultrasound-guided thoracentesis, yielding 25 milliliters of fluid. Limited aspiration of fluid presumably relates to fluid being loculated
--- NOTE | 2019-12-31 15:45 | Diagnostic Imaging Report ---
Indication: Status post thoracentesis Technique: One view of the chest Comparison: none Findings: Small right lateral basilar pneumothorax appears unchanged. Other findings are stable Impression: Unchanged right lateral basilar pneumothorax. Another radiograph will be obtained in 2 hours to assess stability
[2019-12-31] MEDS ORDERED: Vancomycin 1.25gm/NS Premix IVPB SCH (17:00)
[2019-12-31] MEDS ORDERED: Vancomycin 1.25gm/NS Premix 275 ML IVPB SCH (17:00)
--- NOTE | 2019-12-31 17:01 | Pulmonology Progress Note ---
Assessment/Plan Assessment/Plan 1. Acute on chronic systolic and diastolic congestive heart failure. 2. Ischemic cardiomyopathy. 3. Pulmonary edema 4. COPD with exacerbation. 5. Possible pneumonia. 6. Stage IV lung cancer. 7. Type 2 diabetes mellitus. 8. aspiration risk 9. small pneumothorax s/p thoracentesis PLAN diurese on steroids; taper to off; on 20mg prednisone monitor imaging; repeat today consider CT chest oxygen as needed encourage cough BIPAP PRN monitor acid base impression, plan, and exam edited and reviewed in detail care discussed with RN Subjective ROS Limited/Unobtainable: Yes Allergies: Coded Allergies: NO KNOWN ALLERGIES (Verified Allergy, Unknown, 10/10/16) Subjective care noted remains off BIPAP at present on oxygen no distress Objective Last 24 Hour Vital Signs Date Time Temp Pulse Resp B/P (MAP) Pulse Ox O2 Delivery O2 Flow Rate FiO2 12/31/19 16:00 4.0 12/31/19 16:00 98.5 84 18 105/63 (77) 94 12/31/19 15:37 91 20 98 Nasal Cannula 5.0 40 87 20 94 12/31/19 13:01 108/61 12/31/19 12:00 97 12/31/19 12:00 4.0 12/31/19 12:00 98.8 93 19 108/61 (77) 97 12/31/19 10:52 88 20 97 Nasal Cannula 5.0 40 84 20 95 12/31/19 09:00 Nasal Cannula 4.0 12/31/19 08:46 93 113/61 12/31/19 08:00 98.8 93 20 113/61 (78) 97 12/31/19 08:00 93 12/31/19 08:00 4.0 12/31/19 07:32 95 22 95 Nasal Cannula 5.0 40 95 22 95 12/31/19 07:32 95 Nasal Cannula 5.0 40 12/31/19 05:49 107/59 12/31/19 05:34 92 107/59 (75) 12/31/19 04:00 97.5 92 20 131/70 (90) 94 12/31/19 04:00 85 12/31/19 04:00 4.0 12/31/19 03:26 98 26 97 60 12/31/19 03:25 101 24 98 Bi-Pap 60 98 22 95 12/31/19 00:45 87 32 92 60 12/31/19 00:00 96 12/31/19 00:00 50 12/31/19 00:00 97.2 97 24 123/65 (84) 91 12/30/19 22:32 93 20 96 Nasal Cannula 5.0 40 92 20 92 12/30/19 22:01 98 130/67 12/30/19 21:00 Nasal Cannula 4.0 12/30/19 20:00 90 12/30/19 20:00 4.0 12/30/19 20:00 97.5 98 24 130/67 (88) 96 12/30/19 19:57 92 22 97 Nasal Cannula 5.0 40 90 21 93 12/30/19 19:56 93 Nasal Cannula 5.0 40 12/30/19 18:04 113/60 Intake and Output 12/30/19 12/31/19 19:00 07:00 Intake Total 600 ml Output Total 850 ml Balance 600 ml -850 ml Other 600 ml Output Urine Total 850 ml Objective WDWN NAD reduced breath sounds bilaterally with some crackles [id number] without MRG NABS nontender no HSM no CC mild edema reduced LOC reviewed and edited Laboratory Tests 12/31/19 06:30: Prothrombin Time 10.2, Prothromb Time International Ratio 1.0, Activated Partial Thromboplast Time 27, Sodium Level 138, Potassium Level 4.7, Chloride Level 101, Carbon Dioxide Level 29, Anion Gap 9, Blood Urea Nitrogen 42H, Creatinine 1.5H, Estimat Glomerular Filtration Rate 40.2, Glucose Level 146H, Calcium Level 9.3, Magnesium Level 2.5H, Total Bilirubin 0.3, Aspartate Amino Transf (AST/SGOT) 19, Alanine Aminotransferase (ALT/SGPT) 15, Alkaline Phosphatase 60, Total Protein 6.8, Albumin 2.2L, Globulin 4.6, Albumin/Globulin Ratio 0.5L Current Medications Medications (Trade) Dose Ordered Sig/Carlos Route PRN Reason Start Time Stop Time Status Last Admin Dose Admin Acetaminophen (Tylenol) 650 mg Q4H PRN ORAL Mild Pain/Temp > 100.5 12/29/19 17:00 01/24/20 16:59 12/30/19 09:43 Acetaminophen/ Hydrocodone Bitart ([place] 10/325) 1 tab Q4H PRN ORAL For Pain 12/29/19 17:00 01/01/20 16:59 12/29/19 21:14 Albuterol/ Ipratropium (Albuterol/ Ipratropium) 3 ml Q4HRT HHN 12/29/19 19:00 01/03/20 02:59 12/31/19 15:27 Ascorbic Acid (Vitamin C) 250 mg TWICE A DAY ORAL 12/31/19 18:00 01/30/20 17:59 Aspirin (Ecotrin) 81 mg DAILY ORAL 12/30/19 09:00 01/24/20 13:14 12/31/19 08:46 Cefepime HCl 1 gm/ Dextrose 55 ml @ 110 mls/hr EVERY 12 HOURS IVPB 12/29/19 21:00 01/03/20 09:29 12/31/19 08:48 Dextrose (Dextrose 50%) 25 ml Q30M PRN IV Hypoglycemia 12/29/19 16:45 01/24/20 13:14 Dextrose (Dextrose 50%) 50 ml Q30M PRN IV Hypoglycemia 12/29/19 16:45 01/24/20 13:14 Heparin Sodium (Porcine) (Heparin 5000 units/ml) 5,000 units EVERY 8 HOURS SUBQ 12/29/19 22:00 01/23/20 07:59 12/30/19 22:06 Insulin Aspart (NovoLOG) BEFORE MEALS AND HS SUBQ 12/29/19 17:02 01/28/20 17:01 12/31/19 13:02 Magnesium Hydroxide (Mom) 30 ml DAILYPRN PRN ORAL Constipation 12/29/19 17:00 01/24/20 16:59 Metoprolol Tartrate (Lopressor) 50 mg Q12HR ORAL 12/30/19 09:00 01/29/20 08:59 12/31/19 08:46 Multivitamins (Multivitamins) 1 tab DAILY ORAL 01/01/20 09:00 01/31/20 08:59 Nitroglycerin (Nitro-Bid) 1 inch TID@0600,1200,1800 TOPIC 12/29/19 18:00 01/24/20 17:59 12/31/19 13:01 Pantoprazole (Protonix) 40 mg DAILY ORAL 12/30/19 09:00 01/23/20 08:59 12/31/19 08:46 Pravastatin Sodium (Pravachol) 20 mg BEDTIME ORAL 12/29/19 21:00 01/24/20 20:59 12/30/19 22:00 Prednisone (predniSONE) 20 mg DAILY ORAL 12/30/19 09:00 01/28/20 08:59 12/31/19 08:46 Vancomycin HCl (Vanco rx to dose) 1 ea DAILY PRN MISC Per rx protocol 12/30/19 09:00 01/23/20 02:14 Vancomycin/Sodium Chloride 275 ml @ 183.333 mls/hr Q48H IVPB 12/31/19 17:00 01/05/20 16:59 Rei Seymour MD Dec 31, 2019 17:01
[2019-12-31] MEDS: Ascorbic Acid 500mg tab ORAL SCH (17:37)
[2020-01-01] VITALS: BP 115/65
--- NOTE | 2020-01-01 01:45 | Progress Note ---
DATE: 12/31/2019 CARDIOLOGY PROGRESS NOTE SUBJECTIVE: The patient is status post thoracentesis today, loculation was noted with only minimal amount of fluid removed. A small pneumothorax was noted as a complication. Followup chest x-ray revealed no progression. The patient denies any chest pain or shortness of breath. OBJECTIVE: VITAL SIGNS: Blood pressure 105/63, pulse 84, respiratory rate 18, afebrile. Monitored rhythm sinus with rare atrial ectopics and occasional ventricular ectopy. LUNGS: Diminished breath sounds. Few rales. CARDIAC: Regular rhythm rate. Normal S1, S2. A 1/6 systolic murmur at apex. ABDOMEN: Soft, nontender EXTREMITIES: Good pulses. No edema. NEUROLOGIC: Nonfocal. IMPRESSION: 1. Iatrogenic pneumothorax. 2. Pleural effusion. 3. Healthcare-acquired pneumonia. 4. COPD. 5. Acute on chronic diastolic congestive heart failure. 6. Ischemic and hypertensive cardiomyopathy. PLAN: 1. Follow up chest radiograph. 2. Respiratory hygiene. 3. Continue diuresis. 4. Maximize anti-failure regimen. 5. DVT prophylaxis. 6. Nasal oxygen. 7. Discharge planning to [facility]. Transfer will be confirmed tomorrow if pneumothorax remained stable. Samuel Amos M.D. DR: RIAZ JOB#: [id number] CC:
[2020-01-01] MEDS: Albuterol/Ipratropium 3ml neb HHN SCH ×4 (02:42→15:18)
[2020-01-01 04:00] VITALS: BP 115/65
[2020-01-01 05:48] VITALS: BP 111/64
[2020-01-01] MEDS: Nitroglycerin 2% oint pkt TOPIC SCH ×2 (05:49→12:10)
[2020-01-01] MEDS: Heparin 5000 units/ml inj SUBQ SCH ×2 (05:54→14:36)
[2020-01-01] MEDS: NovoLOG Insulin Flexpen SUBQ SCH ×2 (05:58→12:09)
[2020-01-01 07:25] LABS: BASOPHILS % (AUTO) 0.8 % (0.0-2.0); EOSINOPHILS % (AUTO) 0.4 % (0.0-3.0); HEMATOCRIT 38.9 % (37.0-47.0); HEMOGLOBIN 12.4 G/DL (12.0-16.0); LYMPHOCYTES % (AUTO) 14.3 % (20.0-45.0); MEAN CORPUSCULAR VOLUME 81 FL (80-99); MONOCYTES % (AUTO) 12.3 % (1.0-10.0); NEUTROPHILS % (AUTO) 72.1 % (45.0-75.0); PLATELET COUNT 197 K/UL (150-450); RED BLOOD COUNT 4.82 M/UL (4.20-5.40); RED CELL DISTRIBUTION WIDTH 16.7 % (11.6-14.8)
--- NOTE | 2020-01-01 07:37 | General Progress Note ---
Assessment/Plan Problem List: (1) Pneumonia ICD Codes: J18.9 - Pneumonia, unspecified organism SNOMED: 297917583 (2) CHF exacerbation ICD Codes: I50.9 - Heart failure, unspecified SNOMED: 160226370, [id number] Qualifiers: Qualified Codes: I50.9 - Heart failure, unspecified (3) COPD with exacerbation ICD Codes: J44.1 - Chronic obstructive pulmonary disease with (acute) exacerbation SNOMED: 680728126, 0610056 (4) Respiratory failure with hypoxia ICD Codes: J96.91 - Respiratory failure, unspecified with hypoxia SNOMED: 80465299618255066 Qualifiers: Qualified Codes: J96.21 - Acute and chronic respiratory failure with hypoxia (5) RADHA (acute kidney injury) ICD Codes: N17.9 - Acute kidney failure, unspecified SNOMED: 64634045, 2668100 Status: stable, progressing Assessment/Plan: bowel regime iv abx bipap as needed o2 resp care dvt/stress ulcer prophylaxis Subjective ROS Limited/Unobtainable: No Constitutional: Reports: malaise, weakness HEENT: Reports: no symptoms Cardiovascular: Reports: no symptoms Respiratory: Reports: cough, shortness of breath Gastrointestinal/Abdominal: Reports: constipated Genitourinary: Reports: no symptoms Neurologic/Psychiatric: Reports: no symptoms Endocrine: Reports: no symptoms Hematologic/Lymphatic: Reports: no symptoms Allergies: Coded Allergies: NO KNOWN ALLERGIES (Verified Allergy, Unknown, 10/10/16) All Systems: reviewed and negative except above Subjective off bipap. still sob. c/o constipation. no Bm x 3 days. denies pain. no vomiting. Objective Last 24 Hour Vital Signs Date Time Temp Pulse Resp B/P (MAP) Pulse Ox O2 Delivery O2 Flow Rate FiO2 01/01/20 06:52 87 18 95 Nasal Cannula 4.0 36 88 18 94 01/01/20 06:43 94 Nasal Cannula 4.0 36 01/01/20 05:49 111/64 01/01/20 05:48 111/64 (80) 01/01/20 04:00 98.0 88 18 115/65 (82) 95 01/01/20 04:00 84 01/01/20 04:00 4.0 01/01/20 02:44 87 29 96 50 01/01/20 02:42 88 25 98 Bi-Pap 40 85 27 97 01/01/20 01:05 92 30 95 60 01/01/20 00:00 84 01/01/20 00:00 4.0 01/01/20 00:00 98.0 80 18 115/65 (82) 95 12/31/19 22:45 87 18 98 Nasal Cannula 5.0 40 84 18 95 12/31/19 21:10 88 106/63 12/31/19 21:00 Nasal Cannula 4.0 12/31/19 21:00 Nasal Cannula 4.0 12/31/19 20:20 88 20 97 Nasal Cannula 5.0 40 86 20 94 12/31/19 20:09 95 Nasal Cannula 5.0 40 12/31/19 20:00 98.5 92 18 106/63 (77) 98 12/31/19 20:00 86 12/31/19 20:00 4.0 12/31/19 17:38 105/63 12/31/19 16:00 4.0 12/31/19 16:00 98.5 84 18 105/63 (77) 94 12/31/19 16:00 88 12/31/19 15:37 91 20 98 Nasal Cannula 5.0 40 87 20 94 12/31/19 13:01 108/61 12/31/19 12:00 97 12/31/19 12:00 4.0 12/31/19 12:00 98.8 93 19 108/61 (77) 97 12/31/19 10:52 88 20 97 Nasal Cannula 5.0 40 84 20 95 12/31/19 09:00 Nasal Cannula 4.0 12/31/19 08:46 93 113/61 12/31/19 08:00 98.8 93 20 113/61 (78) 97 12/31/19 08:00 93 12/31/19 08:00 4.0 Intake and Output 12/31/19 01/01/20 19:00 07:00 Output Total 600 ml 600 ml Balance -600 ml -600 ml Output Urine Total 600 ml 600 ml Laboratory Tests 01/01/20 06:20: White Blood Count 6.0, Red Blood Count 4.82, Hemoglobin 12.4, Hematocrit 38.9, Mean Corpuscular Volume 81, Mean Corpuscular Hemoglobin 25.8L, Mean Corpuscular Hemoglobin Concent 32.0, Red Cell Distribution Width 16.7H, Platelet Count 197, Mean Platelet Volume 7.9, Neutrophils (%) (Auto) 72.1, Lymphocytes (%) (Auto) 14.3L, Monocytes (%) (Auto) 12.3H, Eosinophils (%) (Auto) 0.4, Basophils (%) ( Auto) 0.8, Erythrocyte Sedimentation Rate [Pending], Sodium Level [Pending], Potassium Level [Pending], Chloride Level [Pending], Carbon Dioxide Level [ Pending], Blood Urea Nitrogen [Pending], Creatinine [Pending], Estimat Glomerular Filtration Rate [Pending], Glucose Level [Pending], Calcium Level [ Pending], Total Bilirubin [Pending], Aspartate Amino Transf (AST/SGOT) [Pending] , Alanine Aminotransferase (ALT/SGPT) [Pending], Alkaline Phosphatase [Pending] , C-Reactive Protein, Quantitative [Pending], Total Protein [Pending], Albumin [ Pending], Globulin [Pending] Height (Feet): 5 Height (Inches): 6.00 Weight (Pounds): 111 Objective General Appearance: WD/WN, alert Cardiovascular: regular rhythm Respiratory/Chest: decreased breath sounds Abdomen: normal bowel sounds, non tender, soft, no organomegaly Edema: no edema noted Arm (L), no edema noted Arm (R), no edema noted Leg (L), no edema noted Leg (R), no edema noted Pedal (L), no edema noted Pedal (R), no edema noted Generalized Neurologic: alert Elder Freeman MD Jan 01, 2020 07:37
[2020-01-01 07:52] LABS: ALANINE AMINOTRANSFERASE 22 U/L (12-78); ALBUMIN 2.3 G/DL (3.4-5.0); ALBUMIN/GLOBULIN RATIO 0.5 (1.0-2.7); ALKALINE PHOSPHATASE 63 U/L (46-116); ANION GAP 14 mmol/L (5-15); ASPARTATE AMINO TRANSFERASE 19 U/L (15-37); BILIRUBIN,TOTAL 0.4 MG/DL (0.2-1.0); BLOOD UREA NITROGEN 43 mg/dL (7-18); CALCIUM 9.3 MG/DL (8.5-10.1); CARBON DIOXIDE 23 MMOL/L (21-32); CHLORIDE 101 MMOL/L (98-107); CREATININE 1.6 MG/DL (0.55-1.30); POTASSIUM 4.5 MMOL/L (3.5-5.1); SODIUM 138 MMOL/L (136-145)
[2020-01-01 08:00] VITALS: BP 113/59
[2020-01-01] MEDS ORDERED: Fleet's Enema 133ml RECTAL SCH (08:00)
[2020-01-01] MEDS ORDERED: Docusate 250mg cap ORAL SCH (09:00)
--- NOTE | 2020-01-01 09:04 | Diagnostic Imaging Report ---
Indication: Follow-up of pneumothorax status post thoracentesis Technique: One view of the chest Comparison: 2 hours earlier Findings: Small right lateral basilar pneumothorax is unchanged. Infiltrates in the left lobe are unchanged Impression: Unchanged small right lateral basilar ex vacuo pneumothorax, over 2 hours.
[2020-01-01] MEDS: Aspirin EC 81mg tab ORAL SCH (09:56)
[2020-01-01] MEDS: Ascorbic Acid 500mg tab ORAL SCH (09:56)
[2020-01-01] MEDS: Metoprolol Tartrate 50mg tab ORAL SCH (09:56)
[2020-01-01] MEDS: Cefepime HCl 1 GM in D5W 55 ML IVPB SCH (10:10)
[2020-01-01 12:00] VITALS: BP 114/58
--- NOTE | 2020-01-01 13:50 | Diagnostic Imaging Report ---
Indication: Shortness of breath, follow-up of post postthoracentesis pneumothorax Technique: One view of the chest Comparison: 12/31/2019 Findings: Small right lateral basilar pneumothorax is unchanged. Again demonstrated is parietal pleural thickening. Again demonstrated is right medial basal opacity. Again demonstrated are parenchymal infiltrates involving the left mid and lower lung and possibly a small left pleural effusion. There is evidence of prior CABG. Granulomatous calcification again projects at the left lung base Impression: Unchanged small right lateral basilar extra vacuo postthoracentesis pneumothorax Right medial basilar opacity. Suspect that this represents atelectatic right lower lobe. This could also represent loculated pleural fluid, densely consolidated lung, or tumor Unchanged left mid and lower lung infiltrate
--- NOTE | 2020-01-01 14:07 | Surgery Progress Note ---
Surgery Progress Note Subjective Additional Comments improved states she feels well today no nv//f tolerating diet Objective Last 24 Hour Vital Signs Date Time Temp Pulse Resp B/P (MAP) Pulse Ox O2 Delivery O2 Flow Rate FiO2 01/01/20 12:10 114/58 01/01/20 12:00 4.0 01/01/20 12:00 97.1 94 20 114/58 (76) 90 01/01/20 11:56 87 01/01/20 11:27 89 16 96 Nasal Cannula 4.0 36 91 16 94 01/01/20 09:56 91 113/59 01/01/20 08:22 Nasal Cannula 4.0 01/01/20 08:00 98.1 91 20 113/59 (77) 94 01/01/20 08:00 4.0 01/01/20 07:48 88 01/01/20 06:52 87 18 95 Nasal Cannula 4.0 36 88 18 94 01/01/20 06:43 94 Nasal Cannula 4.0 36 01/01/20 05:49 111/64 01/01/20 05:48 111/64 (80) 01/01/20 04:00 98.0 88 18 115/65 (82) 95 01/01/20 04:00 84 01/01/20 04:00 4.0 01/01/20 02:44 87 29 96 50 01/01/20 02:42 88 25 98 Bi-Pap 40 85 27 97 01/01/20 01:05 92 30 95 60 01/01/20 00:00 84 01/01/20 00:00 4.0 01/01/20 00:00 98.0 80 18 115/65 (82) 95 12/31/19 22:45 87 18 98 Nasal Cannula 5.0 40 84 18 95 12/31/19 21:10 88 106/63 12/31/19 21:00 Nasal Cannula 4.0 12/31/19 21:00 Nasal Cannula 4.0 12/31/19 20:20 88 20 97 Nasal Cannula 5.0 40 86 20 94 12/31/19 20:09 95 Nasal Cannula 5.0 40 12/31/19 20:00 98.5 92 18 106/63 (77) 98 12/31/19 20:00 86 12/31/19 20:00 4.0 12/31/19 17:38 105/63 2/20/20 16:00 4.0 12/31/19 16:00 98.5 84 18 105/63 (77) 94 12/31/19 16:00 88 12/31/19 15:37 91 20 98 Nasal Cannula 5.0 40 87 20 94 I&O Intake and Output 12/31/19 01/01/20 19:00 07:00 Output Total 600 ml 600 ml Balance -600 ml -600 ml Output Urine Total 600 ml 600 ml Dressing: dry Wound: clean Cardiovascular: RSR Respiratory: clear Abdomen: soft, flat, non-tender, present bowel sounds Extremities: no cyanosis, other Laboratory Tests Test 01/01/20 06:20 White Blood Count 6.0 K/UL (4.8-10.8) Red Blood Count 4.82 M/UL (4.20-5.40) Hemoglobin 12.4 G/DL (12.0-16.0) Hematocrit 38.9 % (37.0-47.0) Mean Corpuscular Volume 81 FL (80-99) Mean Corpuscular Hemoglobin 25.8 PG (27.0-31.0) L Mean Corpuscular Hemoglobin Concent 32.0 G/DL (32.0-36.0) Red Cell Distribution Width 16.7 % (11.6-14.8) H Platelet Count 197 K/UL (150-450) Mean Platelet Volume 7.9 FL (6.5-10.1) Neutrophils (%) (Auto) 72.1 % (45.0-75.0) Lymphocytes (%) (Auto) 14.3 % (20.0-45.0) L Monocytes (%) (Auto) 12.3 % (1.0-10.0) H Eosinophils (%) (Auto) 0.4 % (0.0-3.0) Basophils (%) (Auto) 0.8 % (0.0-2.0) Erythrocyte Sedimentation Rate 44 MM/HR (0-30) H Sodium Level 138 MMOL/L (136-145) Potassium Level 4.5 MMOL/L (3.5-5.1) Chloride Level 101 MMOL/L (98-107) Carbon Dioxide Level 23 MMOL/L (21-32) Anion Gap 14 mmol/L (5-15) Blood Urea Nitrogen 43 mg/dL (7-18) H Creatinine 1.6 MG/DL (0.55-1.30) H Estimat Glomerular Filtration Rate 37.3 mL/min (>60) Glucose Level 128 MG/DL (74-106) H Calcium Level 9.3 MG/DL (8.5-10.1) Total Bilirubin 0.4 MG/DL (0.2-1.0) Aspartate Amino Transf (AST/SGOT) 19 U/L (15-37) Alanine Aminotransferase (ALT/SGPT) 22 U/L (12-78) Alkaline Phosphatase 63 U/L (46-116) C-Reactive Protein, Quantitative 3.1 mg/dL (0.00-0.90) H Total Protein 7.1 G/DL (6.4-8.2) Albumin 2.3 G/DL (3.4-5.0) L Globulin 4.8 g/dL Albumin/Globulin Ratio 0.5 (1.0-2.7) L Plan Problems: (1) CHF exacerbation (2) RADHA (acute kidney injury) (3) COPD with exacerbation (4) HCAP (healthcare-associated pneumonia) (5) Pneumonia (6) Respiratory failure with hypoxia (7) Decubitus skin ulcer Assessment & Plan: Pt presented on admission with resolving pressure injury sacrum. Base of wound is pale pink and dry with surrounding hyperpigmented borders.(L)3.5cm x (W)2.5cm. In close proximity to Sacrum on L gluteal cheek a Partial thickness pressure injury noted. Base of wound is moist and viable. Edges flat and adherent to base of wound Darker skin tone without induration periwound. Non-blanchable erythema noted to R and L heels. Both heels are boggy but non- tender when minimally palpated. Dry flaking skin noted to both lower ext and both feet.Skin moisturized with Phytoplex Skin Nourishing lotion. Since admission there has been breakdown of the epidermal tissue and a partial thickness stage II decubitus ulcer forming just around the apex of the sacral bone 1 cm x 1 cm without dermal breakdown periwound erythema scaly skin identified. Patient is currently on an air mattress and wound care being performed by nursing team. Discussion had with patient and family member at bedside in regards to these findings and care plan Sacral pressure injury resurfacing despite all interventions implemented. Pt is emaciated and nutrition is poor. Base of sacral wound moist ,pink with Biofilm.( L)1.3cm x (W)1cm. Edges adherent to base of wound. No odor or exudate noted. Non -blanching erythema extending to R and L buttocks with surrounding darker skin tone without induration(L)8.5cm x (W)13.3cm. Pt denied tenderness when palpated. L heel is boggy with non-blanching erythema. Pt denied tenderness when palpated. R heel boggy but blanchable. Non-tender when palpated. Tx.Plan: Pt is alert and pleasant and was updated on skin decline. Pt compliant with repositioning and has an APM/GAURAV mattress overlay on her bed. Positioned on side with pillow. Both heels floated off bed with pillows Cleanse sacral wound with Saline. Apply Therahoney. Apply Moisture Barrier Paste periwound and to R and L buttocks.Cover with Optifoam drsg. Change every 3 days and prn. Apply Cavilon Skin Barrier to both heels. Cover each heel with Optifoam drsg.Change every 7 days and prn. Apply Moisture Barrier Paste to Sacrum and L buttocks. Cover with Optifoam drsg. Change every 3 days and prn. Apply Cavilon Skin Barrier to both heels. Cover each heel with Optifoam drsg. Change every 7 days and prn. Reposition at least every 2 hours or as tolerated. Off-load heels with pillow.. APM/GAURAV Mattress overlay. Air soft mattress Nutritional optimization We will follow with recommendations thank you for let me participate in patient' s care (8) Malnutrition Assessment & Plan: DAILY ESTIMATED NEEDS: Needs based on COPD, CA, Underweight/ 47.7kg 30-35 kcals/kg 9223-1515 total kcals 1.25-1.5 g protein/kg 60-72 g total protein 25-30 mL/kg 9720-0493 total fluid mLs NUTRITION DIAGNOSIS: 1) Increased kcal and pro needs r/t underweight status, cancer as evidenced by pt w/ stage 4 lung cancer, on chemo, BMI underweight per guidelines, @81 % of ideal body weight w/ generalized moderate to severe wasting. CURRENT DIET:No Added Salt ms finely chopped PO DIET RECOMMENDATIONS: Liberalized REGULAR for improved PO / texture per CRYSTAL MACHINING COORDINATOR ADDITIONAL RECOMMENDATIONS: 1) Add Glucerna TID w/ meals 2) CRYSTAL MACHINING COORDINATOR eval for appropriate texture 3) WOUND care eval -> add GALE BID + MVI x 1, Vit C 250mg x 1 4) Daily wts, calibrated 5) Monitor for continued improved PO intake 6) W/ PO intake consistently >75%, rec LOW NA, CCHO MED diet Henrik Maxwell Jan 01, 2020 14:07
[2020-01-01 16:00] VITALS: BP 130/71
[2020-01-01] MEDS ORDERED: METOPROLOL TART50 MG ORAL (16:56)
[2020-01-01] MEDS ORDERED: PREDNISONE10 MG ORAL (16:56)
[2020-01-01] MEDS ORDERED: ASCORBIC ACID500 M4 ORAL (16:57)
[2020-01-01] MEDS ORDERED: MULTIVITAMINS1 EA14 PO (16:58)
[2020-01-01] MEDS ORDERED: COLACE100 MG ORAL (16:59)
[2020-01-01] MEDS ORDERED: NOVOLOG100 UNIT/4 SQ (17:00)
[2020-01-01] MEDS ORDERED: NORCO 10-325 T1 EACH ORAL (17:00)
[2020-01-01] MEDS ORDERED: NITRO-BID1 GM TOPIC (17:01)
--- NOTE | 2020-01-01 17:08 | Pulmonology Progress Note ---
Assessment/Plan Assessment/Plan 1. Acute on chronic systolic and diastolic congestive heart failure. 2. Ischemic cardiomyopathy. 3. Pulmonary edema 4. COPD with exacerbation. 5. Possible pneumonia. 6. Stage IV lung cancer. 7. Type 2 diabetes mellitus. 8. aspiration risk 9. small pneumothorax s/p thoracentesis PLAN diurese as able on steroids; taper to off; on prednisone monitor imaging; repeat today consider CT chest oxygen as needed encourage cough BIPAP PRN monitor acid base slow improvement impression, plan, and exam edited and reviewed in detail care discussed with RN Subjective ROS Limited/Unobtainable: Yes Allergies: Coded Allergies: NO KNOWN ALLERGIES (Verified Allergy, Unknown, 10/10/16) Subjective care noted some congestion on oxygen no distress Objective Last 24 Hour Vital Signs Date Time Temp Pulse Resp B/P (MAP) Pulse Ox O2 Delivery O2 Flow Rate FiO2 01/01/20 15:28 86 18 97 Nasal Cannula 4.0 36 83 20 95 01/01/20 12:10 114/58 01/01/20 12:00 4.0 01/01/20 12:00 97.1 94 20 114/58 (76) 90 01/01/20 11:56 87 01/01/20 11:27 89 16 96 Nasal Cannula 4.0 36 91 16 94 01/01/20 09:56 91 113/59 01/01/20 08:22 Nasal Cannula 4.0 01/01/20 08:00 98.1 91 20 113/59 (77) 94 01/01/20 08:00 4.0 01/01/20 07:48 88 01/01/20 06:52 87 18 95 Nasal Cannula 4.0 36 88 18 94 01/01/20 06:43 94 Nasal Cannula 4.0 36 01/01/20 05:49 111/64 01/01/20 05:48 111/64 (80) 01/01/20 04:00 98.0 88 18 115/65 (82) 95 01/01/20 04:00 84 01/01/20 04:00 4.0 01/01/20 02:44 87 29 96 50 01/01/20 02:42 88 25 98 Bi-Pap 40 85 27 97 01/01/20 01:05 92 30 95 60 01/01/20 00:00 84 01/01/20 00:00 4.0 01/01/20 00:00 98.0 80 18 115/65 (82) 95 12/31/19 22:45 87 18 98 Nasal Cannula 5.0 40 84 18 95 12/31/19 21:10 88 106/63 12/31/19 21:00 Nasal Cannula 4.0 12/31/19 21:00 Nasal Cannula 4.0 12/31/19 20:20 88 20 97 Nasal Cannula 5.0 40 86 20 94 12/31/19 20:09 95 Nasal Cannula 5.0 40 12/31/19 20:00 98.5 92 18 106/63 (77) 98 12/31/19 20:00 86 12/31/19 20:00 4.0 12/31/19 17:38 105/63 Intake and Output 12/31/19 01/01/20 19:00 07:00 Output Total 600 ml 600 ml Balance -600 ml -600 ml Output Urine Total 600 ml 600 ml Objective WDWN NAD reduced breath sounds bilaterally with some rhonchi [id number] without MRG NABS nontender no HSM no CC mild edema reduced LOC reviewed and edited Laboratory Tests 01/01/20 06:20: White Blood Count 6.0, Red Blood Count 4.82, Hemoglobin 12.4, Hematocrit 38.9, Mean Corpuscular Volume 81, Mean Corpuscular Hemoglobin 25.8L, Mean Corpuscular Hemoglobin Concent 32.0, Red Cell Distribution Width 16.7H, Platelet Count 197, Mean Platelet Volume 7.9, Neutrophils (%) (Auto) 72.1, Lymphocytes (%) (Auto) 14.3L, Monocytes (%) (Auto) 12.3H, Eosinophils (%) (Auto) 0.4, Basophils (%) ( Auto) 0.8, Erythrocyte Sedimentation Rate 44H, Sodium Level 138, Potassium Level 4.5, Chloride Level 101, Carbon Dioxide Level 23, Anion Gap 14, Blood Urea Nitrogen 43H, Creatinine 1.6H, Estimat Glomerular Filtration Rate 37.3, Glucose Level 128H, Calcium Level 9.3, Total Bilirubin 0.4, Aspartate Amino Transf (AST/SGOT) 19, Alanine Aminotransferase (ALT/SGPT) 22, Alkaline Phosphatase 63, C-Reactive Protein, Quantitative 3.1H, Total Protein 7.1, Albumin 2.3L, Globulin 4.8, Albumin/Globulin Ratio 0.5L Current Medications Medications (Trade) Dose Ordered Sig/Carlos Route PRN Reason Start Time Stop Time Status Last Admin Dose Admin Acetaminophen (Tylenol) 650 mg Q4H PRN ORAL Mild Pain/Temp > 100.5 12/29/19 17:00 01/24/20 16:59 12/30/19 09:43 Albuterol/ Ipratropium (Albuterol/ Ipratropium) 3 ml Q4HRT HHN 12/29/19 19:00 01/03/20 02:59 01/01/20 15:18 Ascorbic Acid (Vitamin C) 250 mg TWICE A DAY ORAL 12/31/19 18:00 01/30/20 17:59 01/01/20 09:56 Aspirin (Ecotrin) 81 mg DAILY ORAL 12/30/19 09:00 01/24/20 13:14 01/01/20 09:56 Dextrose (Dextrose 50%) 25 ml Q30M PRN IV Hypoglycemia 12/29/19 16:45 01/24/20 13:14 Dextrose (Dextrose 50%) 50 ml Q30M PRN IV Hypoglycemia 12/29/19 16:45 01/24/20 13:14 Docusate Sodium (Colace) 250 mg BID ORAL 01/01/20 09:00 01/31/20 08:59 01/01/20 09:56 Heparin Sodium (Porcine) (Heparin 5000 units/ml) 5,000 units EVERY 8 HOURS SUBQ 12/29/19 22:00 01/23/20 07:59 01/01/20 14:36 Insulin Aspart (NovoLOG) BEFORE MEALS AND HS SUBQ 12/29/19 17:02 01/28/20 17:01 01/01/20 12:09 Magnesium Hydroxide (Mom) 30 ml DAILYPRN PRN ORAL Constipation 12/29/19 17:00 01/24/20 16:59 01/01/20 00:50 Metoprolol Tartrate (Lopressor) 50 mg Q12HR ORAL 12/30/19 09:00 01/29/20 08:59 01/01/20 09:56 Multivitamins (Multivitamins) 1 tab DAILY ORAL 01/01/20 09:00 01/31/20 08:59 01/01/20 09:56 Nitroglycerin (Nitro-Bid) 1 inch QHS TOPIC 01/01/20 21:00 01/31/20 20:59 Pantoprazole (Protonix) 40 mg DAILY ORAL 12/30/19 09:00 01/23/20 08:59 01/01/20 09:56 Pravastatin Sodium (Pravachol) 20 mg BEDTIME ORAL 12/29/19 21:00 01/24/20 20:59 12/31/19 21:10 Prednisone (predniSONE) 10 mg DAILY ORAL 01/02/20 09:00 02/01/20 08:59 Rei Seymour MD Jan 01, 2020 17:08
[2020-01-01] MEDS ORDERED: Tubing IV Secondary IV ONE (17:54)
[2020-01-01] MEDS ORDERED: Nitroglycerin 2% oint pkt TOPIC SCH (21:00)
--- NOTE | 2020-01-02 00:30 | Progress Note ---
DATE: 01/01/2020 CARDIOLOGY PROGRESS NOTE SUBJECTIVE: The patient has minimal congestion. No shortness of breath. Serial chest x-rays revealed no progression of iatrogenic pneumothorax from yesterday following thoracentesis. OBJECTIVE: VITAL SIGNS: Blood pressure 114/58, pulse 94, respiratory rate 20, and afebrile. LUNGS: Bilateral breath sounds and rhonchi. CARDIAC: Regular rhythm and rate. Normal S1 and S2. ABDOMEN: Soft. EXTREMITIES: No edema. LABORATORY DATA: White count 6 and hemoglobin 12.4. Sodium 138, potassium 4.5, bicarb 23, BUN 43, and creatinine 1.6. Albumin 2.3. IMPRESSION: 1. Acute on chronic diastolic congestive heart failure. 2. Lung cancer. 3. Chronic obstructive pulmonary disease. 4. Ischemic cardiomyopathy. 5. Recovering pneumonia. PLAN: 1. Steroid taper. 2. Maintenance diuretic. 3. No additional antimicrobials. 4. Bronchodilators. 5. Rehabilitation. 6. Oncology followup to occur while at residential facility. Samuel Amos M.D. DR: [place] JOB#: [id number] CC:
--- NOTE | 2020-01-03 13:34 | Discharge Summary ---
Discharge Summary Discharge Summary _ DATE OF ADMISSION: 12/23/2019 DATE OF DISCHARGE: 01/01/2020 DISCHARGED BY: Dr. Samuel Amos CONSULTANTS: Dr. Leo Freeman BRIEF HOSPITAL COURSE: Patient is an 84-year-old -[place] female, with history of metastatic lung CA, hypertension, ischemic cardiomyopathy and diabetes. She has history of COPD. She presented with complaints of worsening shortness of breath. She was previously seen at an outside hospital a week ago for similar symptoms. She declined admission, but symptoms worsened. Patient is on chemotherapy for metastatic CA. She denied fever or chills. She had a mild nonproductive cough. She then presented to [place] ED for worsening shortness of breath. Upon evaluation at ED, she was saturating 92% on 15 L nonrebreather mask. She presented with acute respiratory failure. Blood work did not show any leukocytosis. Hemoglobin hematocrit were stable. BUN 26 and creatinine 1.6. proBNP was elevated to greater than 15,000. Troponin was negative. EKG showed sinus tachycardia. Chest x-ray showed bilateral consolidation, bilateral pleural effusion right greater than left. He was started on BiPAP support. She was given Lasix. She was then admitted for respiratory failure. She was admitted to ICU. She was continued on BiPAP support. She was given pulmonary hygiene. She was given diuresis. She was started empirically on broad-spectrum antibiotics. She was given IV steroids. Patient decreased shortness of breath. Patient was alert and following commands. Diet was downgraded to pured. She was continued on IV diuresis. Serial x-rays were done to monitor respiratory condition. Surgeon was consulted. During admission, patient was identified to have a partial-thickness sacral decubitus ulcer. She was given wound care. She was placed on APM/GAURAV mattress overlay. Advised frequent repositioning and offloading. Nutrition optimized. Steroids were tapered. She was eventually taken off BiPAP support and was placed on BiPAP PRN. On 12/31/2019, she underwent right thoracentesis, yielding 25 mL of fluid. Chest x-ray postthoracentesis showed a small right lateral basilar pneumothorax.. Likely extrapleural pneumothorax, given similarity in size of the air collection to previously demonstrated right pleural effusion. There was unchanged opacity to the right of the heart. Repeat chest after 2 hours was unchanged. Serial chest x-ray revealed no progression of iatrogenic pneumothorax. Patient was saturating well. She was eventually transferred to a SNF. FINAL DIAGNOSES: Acute respiratory failure requiring BiPAP support, resolved Acute on chronic diastolic CHF Pulmonary edema status post thoracentesis Small pneumothorax status post thoracentesis Acute kidney injury Deep tissue pressure injury, and partial-thickness stage II decubitus ulcer on the sacrum, present on admission Stage IV lung CA Acute COPD exacerbation Ischemic and hypertensive cardiomyopathy Recovering healthcare acquired pneumonia Malnutrition DISPOSITION: DC to SNF DISCHARGE MEDICATIONS: Refer to Discharge Medication List. I have been assigned to complete a discharge summary on this account, I was not involved with the patient's management.--MIC Zuluaga Jacqueline Robles NP Jan 03, 2020 13:34
== END 2020-01-01 17:55 | DRG 193 ==
LOC: EDBD 20:58 → EMR 21:44 → 2W 21:55 → EDBEDREQ 22:25 → ICU 12-24 00:31 → 2W 12-25 19:02 → 2E 12-29 16:00
PROC: 5A09457 Assistance with Respiratory Ventilation, 24-96 Consecutive Hours, Continuous Positive Airway Pressure (ICD-10-PCS; principal; 2019-12-31)
PROC: 0W993ZZ Drainage of Right Pleural Cavity, Percutaneous Approach (ICD-10-PCS; principal; 2019-12-31)
DX: J18.9 Pneumonia, unspecified organism (principal); I50.33 Acute on chronic diastolic (congestive) heart failure; J96.01 Acute respiratory failure with hypoxia; N17.9 Acute kidney failure, unspecified; J44.1 Chronic obstructive pulmonary disease with (acute) exacerbation; C34.90 Malignant neoplasm of unspecified part of unspecified bronchus or lung; E44.0 Moderate protein-calorie malnutrition; J90 Pleural effusion, not elsewhere classified; Z68.1 Body mass index [BMI] 19.9 or less, adult; I13.0 Hypertensive heart and chronic kidney disease with heart failure and stage 1 through stage 4 chronic kidney disease, or unspecified chronic kidney disease; I43 Cardiomyopathy in diseases classified elsewhere; E46 Unspecified protein-calorie malnutrition; J44.0 Chronic obstructive pulmonary disease with (acute) lower respiratory infection; J93.83 Other pneumothorax; N18.9 Chronic kidney disease, unspecified; I25.10 Atherosclerotic heart disease of native coronary artery without angina pectoris; Z87.891 Personal history of nicotine dependence; L89.152 Pressure ulcer of sacral region, stage 2; L89.96 Pressure-induced deep tissue damage of unspecified site; I25.5 Ischemic cardiomyopathy; I11.0 Hypertensive heart disease with heart failure; E11.65 Type 2 diabetes mellitus with hyperglycemia; Z79.899 Other long term (current) drug therapy; Z95.1 Presence of aortocoronary bypass graft; I73.9 Peripheral vascular disease, unspecified; E78.5 Hyperlipidemia, unspecified; R00.0 Tachycardia, unspecified; R13.10 Dysphagia, unspecified; I49.1 Atrial premature depolarization
CPT/HCPCS: 36415; 36600; 71045; 76942; 80048; 80053; 80202; 81003; 82803; 82962; 83735; 83880; 84484; 85007; 85025; 85610; 85651; 85730; 86140; 87070; 87081; 87086; 87205; 93005; 94640; 94660; 94664; 96361; 96365; 96368; 96375; 99291; J1815; J7030; J7620